=== PATIENT | male | born 1950 | race Hispanic/Latino ===

== ENCOUNTER 2018-05-30 20:37 | Inpatient (IN) | payer OTHER ==
[2018-05-30 17:45] VITALS: BMI 25.7
[2018-05-30] MEDS ORDERED: Dextrose 50% SYRINGE Inj (50 ml) IV PRN (22:41)
[2018-05-30] MEDS ORDERED: Glucagon Recombinant 1 mg Inj IM PRN (22:41)
[2018-05-30] MEDS ORDERED: Heparin25000 units/250ml 1/2NS 25,000 UNITS/250 ML BAG IV PRN (23:56)
--- NOTE | 2018-05-31 00:17 | CP.PCM.CON ---
History of Present Illness - History of Present Illness History of Present Illness: Vascular Surgery Consult Note- Dr. Soria Reason for Consult: CEA Eval, Carotid Stenosis 68 colombian speaking male presents to [facility] as a transfer from [facility] for evaluation of Right Carotid Artery Stenosis. Patient has MRA of neck performed on 05/19/18 showing R.ICA > 95% stenosis. Patient admits to having sudden vision changes that would last for 5 seconds and then resolve. Recently 2 weeks prior patient had sudden loss of vision in the left eye however resolved after 5 seconds. Denies extremity weakness, hx of TIA, sudden changes in movement. Denies: fevers, chills, chest pain, shorntess of breath, nausea, vomiting, diarrhea, neck pain PMH: HTN, pre-diabetes PSH: denies ALL: NKDA SocialHx: social ETOH, denies tobacco, recreational drug use Review of Systems - Review of Systems All systems: reviewed and no additional remarkable complaints except - Constitutional Constitutional: As Per HPI Past Patient History - Infectious Disease Hx of Infectious Diseases: None - Past Medical History & Family History Past Medical History?: Yes - Past Social History Smoking Status: Never Smoked - CARDIAC Hx Cardiac Disorders: Yes Hx Hypertension: Yes - MUSCULOSKELETAL/RHEUMATOLOGICAL Hx Falls: No - PSYCHIATRIC Hx Psychophysiologic Disorder: No Hx Substance Use: No - SURGICAL HISTORY Hx Surgeries: No - ANESTHESIA Hx Anesthesia: No Meds Allergies/Adverse Reactions: Allergies Allergy/AdvReac Type Severity Reaction Status Date / Time No Known Allergies Allergy Verified 05/30/18 17:45 - Medications Medications: Current Medications Aspirin (Aspirin Chewable) 81 mg PO DAILY [facility] Dextrose (Dextrose 50% Inj) 0 ml IV STAT PRN; Protocol PRN Reason: Hypoglycemia Protocol Dextrose (Glutose 15) 0 gm PO ONCE PRN; Protocol PRN Reason: Hypoglycemia Protocol Enoxaparin Sodium (Lovenox) 40 mg SC DAILY [facility] Glucagon (Glucagen Diagnostic Kit) 0 mg IM STAT PRN; Protocol PRN Reason: Hypoglycemia Protocol Dextrose (Dextrose 5% In Water 1000 Ml) 1,000 mls @ 0 mls/hr IV .Q0M PRN; Protocol PRN Reason: Hypoglycemia Protocol Heparin Sodium/Sodium Chloride (Heparin 35003 Units/250ml 1/2 Normal Saline) 25,000 units in 250 mls @ 13.554 mls/hr IV .[id number] PRN; Protocol PRN Reason: ADJUST RATE PER PROTOCOL Insulin Aspart (Novolog) 0 unit SC ACHS [facility]; Protocol Physical Exam - Constitutional Appears: Non-toxic, No Acute Distress - Head Exam Head Exam: ATRAUMATIC - Eye Exam Eye Exam: EOMI. absent: Scleral icterus Pupil Exam: PERRL Additional comments: 3mm reactive - ENT Exam ENT Exam: Mucous Membranes Moist - Neck Exam Additional comments: R. Neck Bruit - Respiratory Exam Respiratory Exam: NORMAL BREATHING PATTERN. absent: Accessory Muscle Use, Respiratory Distress - Cardiovascular Exam Cardiovascular Exam: REGULAR RHYTHM. absent: Bradycardia, Tachycardia - GI/Abdominal Exam GI & Abdominal Exam: Soft. absent: Distended, Firm, Guarding, Rigid, Tenderness - Extremities Exam Additional comments: R. Carotid bruit 5/5 muslce strength upper and lower bilateral - Neurological Exam Neurological exam: Alert, Oriented x3 - Psychiatric Exam Psychiatric exam: Normal Affect - Skin Skin Exam: Intact, Warm Results - Vital Signs Recent Vital Signs: Last Vital Signs Temp Pulse 69 05/30/18 23:17 Resp BP Pulse Ox - Labs Result Diagrams: 05/31/18 01:45 05/31/18 01:45 Assessment & Plan - Assessment and Plan (Free Text) Assessment: 68M w/ R. ICA Stenosis 95% Plan: - Hep ggt - continue medical therapy - Patient is amendable surgery - will need medical clearance prior to surgery - further recs per Dr. Soria Surgical Attending PGY2
[2018-05-31 01:50] LABS: BASO # 0.1 K/uL (0.0-0.2); EOS # 0.1 K/uL (0.0-0.7); EOS % 1.9 % (0.0-4.0); HEMOGLOBIN 13.8 g/dL (12.0-18.0); LYMPH # 2.7 K/uL (1.0-4.3); LYMPH % 42.3 % (20.0-40.0); MEAN CELL VOLUME 91.9 fL (80.0-94.0); MEAN CORPUSCULAR HEMOGLOBIN 31.3 pg (27.0-31.0); MEAN PLATELET VOLUME 7.7 fL (7.2-11.7); MONO # 0.4 K/uL (0.0-0.8); MONO % 6.7 % (0.0-10.0); NEUT # 3.1 K/uL (1.8-7.0); NEUT % 48.1 % (50.0-75.0); RBC 4.41 Mil/uL (4.40-5.90); RED CELL DISTRIBUTION WIDTH 13.7 % (11.5-14.5); WHITE BLOOD COUNT 6.4 K/uL (4.8-10.8)
[2018-05-31 02:03] LABS: ALB/GLOB RATIO 1.4 (1.0-2.1); ALBUMIN 3.7 g/dL (3.5-5.0); ALT/SGPT 20 U/L (21-72); AST/SGOT 19 U/L (17-59); BLOOD UREA NITROGEN 13 mg/dL (9-20); CALCIUM 9.2 mg/dl (8.6-10.4); GFR NON-AFRICAN AMERICAN > 60
[2018-05-31] MEDS: Heparin25000 units/250ml 1/2NS 25,000 UNITS/250 ML BAG IV PRN (04:33)
[2018-05-31] MEDS: (Novolog) Insulin Aspart, Recombinant 100 u/ml 10 ml vial SC SCH ×4 (08:21→22:00)
[2018-05-31] MEDS ORDERED: Iodixanol 320 MG/ML 100 ML BOTTLE IV ONE (08:49)
[2018-05-31] MEDS ORDERED: Enoxaparin 40 mg Syringe SC SCH ×2 (10:00)
--- NOTE | 2018-05-31 12:43 | CT ---
Date of service: 05/31/2018 PROCEDURE: CT Angiography of the neck with contrast HISTORY: 95% MRA COMPARISON: None. TECHNIQUE: Contiguous axial images of the neck were obtained from the level of the skull-base to the superior mediastinum in the arteriographic phase of enhancement. Coronal and sagittal reformats or also generated. IV contrast dose: 100 mL Visipaque 320 Radiation dose: Total exam DLP = 1157.86 mGy-cm. This CT exam was performed using one or more of the following dose reduction techniques: Automated exposure control, adjustment of the mA and/or kV according to patient size, and/or use of iterative reconstruction technique. FINDINGS: There is a 3 vessel aortic arch. There are no calcifications or significant stenosis at the origin of the great vessels. There are mild aortic atherosclerotic calcifications present. There are atherosclerotic calcifications at the origin of the right vertebral artery with mild luminal narrowing. RIGHT CAROTID ARTERIES: Common Carotid Artery: Normal. Carotid Bifurcation: There are calcified atherosclerotic plaques in the and circumferential mural thrombus. Internal Carotid Artery: There are peripheral calcified atherosclerotic plaques and extensive mural thrombus with greater than 90% critical narrowing at the ICA origin. There is asymmetric severe narrowing of the cervical segment of internal carotid artery. External Carotid Artery (proximal branches): Normal. LEFT CAROTID ARTERIES: Common Carotid Artery: Normal. Carotid Bifurcation: Mild atherosclerotic calcifications and mural plaque present. Internal Carotid Artery:Eccentric soft plaques and mild atherosclerotic calcifications without evidence for significant luminal narrowing. External Carotid Artery (proximal branches): Normal. VERTEBRAL ARTERIES: Right Vertebral Artery: Normal. Left Vertebral Artery: Normal. The left vertebral artery is hypoplastic, an anatomic variant. OTHER FINDINGS: There are bilateral enlarged posterior triangle lymph nodes, nonspecific. Clinical follow-up is advised. There is biapical pleural parenchymal scarring and calcifications. IMPRESSION: 1. Critical greater than 90% stenosis at the right ICA origin and asymmetric severe diffuse narrowing of the cervical segment of the internal carotid artery. 2. No evidence of hemodynamically significant stenosis in the left internal carotid artery. 3. Patent bilateral vertebral arteries. The left vertebral artery is hypoplastic, an anatomic variant.
--- NOTE | 2018-05-31 15:18 | CP.PCM.HP ---
Past Patient History - Infectious Disease Hx of Infectious Diseases: None - Past Medical History & Family History Past Medical History?: Yes - Past Social History Smoking Status: Never Smoked - CARDIAC Hx Cardiac Disorders: Yes Hx Hypertension: Yes - MUSCULOSKELETAL/RHEUMATOLOGICAL Hx Falls: No - PSYCHIATRIC Hx Psychophysiologic Disorder: No Hx Substance Use: No - SURGICAL HISTORY Hx Surgeries: No - ANESTHESIA Hx Anesthesia: No Meds Allergies/Adverse Reactions: Allergies Allergy/AdvReac Type Severity Reaction Status Date / Time No Known Allergies Allergy Verified 05/30/18 17:45 Results - Vital Signs Recent Vital Signs: Last Vital Signs Temp 98.0 F 05/31/18 07:15 Pulse 78 05/31/18 07:15 Resp 20 05/31/18 07:15 BP 120/70 05/31/18 07:15 Pulse Ox 98 05/31/18 07:15 - Labs Result Diagrams: 05/31/18 01:45 05/31/18 01:45 Labs: Laboratory Results - last 24 hr 05/31/18 05/31/18 05/31/18 01:45 01:45 01:45 WBC 6.4 RBC 4.41 Hgb 13.8 Hct 40.5 MCV 91.9 MCH 31.3 H MCHC 34.0 RDW 13.7 Plt Count 253 MPV 7.7 Neut % (Auto) 48.1 L Lymph % (Auto) 42.3 H [place] % (Auto) 6.7 Eos % (Auto) 1.9 Baso % (Auto) 1.0 Neut # (Auto) 3.1 Lymph # (Auto) 2.7 [place] # (Auto) 0.4 Eos # (Auto) 0.1 Baso # (Auto) 0.1 PT Cancelled INR Cancelled APTT Cancelled Sodium 137 Potassium 3.7 Chloride 107 Carbon Dioxide 24 Anion Gap 10 BUN 13 Creatinine 0.7 L Est GFR ( Amer) > 60 Est GFR (Non-Af Amer) > 60 POC Glucose (mg/dL) Random Glucose 97 Calcium 9.2 Total Bilirubin 0.5 AST 19 ALT 20 L Alkaline Phosphatase 69 Total Protein 6.4 Albumin 3.7 Globulin 2.7 Albumin/Globulin Ratio 1.4 05/31/18 05/31/18 05/31/18 03:08 11:14 11:33 WBC RBC Hgb Hct MCV MCH MCHC RDW Plt Count MPV Neut % (Auto) Lymph % (Auto) [place] % (Auto) Eos % (Auto) Baso % (Auto) Neut # (Auto) Lymph # (Auto) [place] # (Auto) Eos # (Auto) Baso # (Auto) PT INR APTT > 400.0 H* 98.0 H D Sodium Potassium Chloride Carbon Dioxide Anion Gap BUN Creatinine Est GFR ( Amer) Est GFR (Non-Af Amer) POC Glucose (mg/dL) 118 H Random Glucose Calcium Total Bilirubin AST ALT Alkaline Phosphatase Total Protein Albumin Globulin Albumin/Globulin Ratio
--- NOTE | 2018-05-31 18:12 | CARD ---
APPROVED REPORT Date of service: 05/31/2018 EXAM: Two-dimensional and M-mode echocardiogram with Doppler and color Doppler. Other Information Quality : GoodRhythm : INDICATION Pre-Op RISK FACTORS Hypertension Diabetes 2D DIMENSIONS IVSd1.2 (0.7-1.1cm)LVDd4.6 (3.9-5.9cm) PWd0.8 (0.7-1.1cm)LA Dlovma21 (18-58mL) LVDs2.8 (2.5-4.0cm)FS (%) 40.0 % LVEF (%)70.7 (>50%)LVEF (Villegas's)64.52 % IVC0.00 cm M-Mode DIMENSIONS RVDd1.61 (2.1-3.2cm)Left Atrium (MM)3.54 (2.5-4.0cm) IVSd0.79 (0.7-1.1cm)Aortic Root3.05 (2.2-3.7cm) LVDd5.22 (4.0-5.6cm)Aortic Cusp Exc.1.94 (1.5-2.0cm) PWd0.79 (0.7-1.1cm)FS (%) 41 % LVDs3.08 (2.0-3.8cm)LVEF (%)71 (>50%) Mitral Valve MV E Baqikydf20.6cm/sMV A Srkyaqpm38.1cm/sE/A ratio0.8 EJQT809.04 cm/s TDI Lateral E' Peak V8.93cm/sMedial E' Peak V7.58cm/sE/Lateral E'7.8 E/Medial E'9.2 Tricuspid Valve TR Peak Avfahdsv306yk/sTR Peak Gr.36xmFsFDHG35kdKi LEFT VENTRICLE The left ventricle is normal size. There is normal left ventricular wall thickness. The left ventricular function is normal. The left ventricular ejection fraction is within the normal range. There is normal LV segmental wall motion. Transmitral Doppler flow pattern is Grade I-abnormal relaxation pattern. RIGHT VENTRICLE The right ventricle is normal size. There is normal right ventricular wall thickness. The right ventricular systolic function is normal. ATRIA The left atrium size is normal. The right atrium size is normal. AORTIC VALVE The aortic valve is normal in structure. There is trace to mild aortic regurgitation. There is no aortic valvular stenosis. MITRAL VALVE The mitral valve is normal in structure. There is no evidence of mitral valve prolapse. There is no mitral valve stenosis. Mitral regurgitation is trace to mild. TRICUSPID VALVE The tricuspid valve is normal in structure. There is trace tricuspid regurgitation. PULMONIC VALVE There is mild pulmonic valvular regurgitation. GREAT VESSELS The aortic root is normal in size. PERICARDIAL EFFUSION There is a trace pericardial effusion. <Conclusion> The left ventricle is normal size. There is normal left ventricular wall thickness. The left ventricular function is normal. The left ventricular ejection fraction is within the normal range. There is normal LV segmental wall motion. Transmitral Doppler flow pattern is Grade I-abnormal relaxation pattern. There is trace to mild aortic regurgitation. Mitral regurgitation is trace to mild. There is mild pulmonic valvular regurgitation.
[2018-06-01] MEDS: Heparin25000 units/250ml 1/2NS 25,000 UNITS/250 ML BAG IV PRN (02:25)
--- NOTE | 2018-06-01 05:03 | CP.PCM.PN ---
Subjective - Date & Time of Evaluation Date of Evaluation: 06/01/18 Time of Evaluation: 05:54 - Subjective Subjective: Vascular Surgery Note for Dr. Soria Patient seen and examined at bedside. No acute event overnight. Patient states that he is feeling much better. He is tolerating diet. Denies any weakness, numbness/tingling, vision changes, confusion, dizziness/lightheadedness or vertigo. Objective - Vital Signs/Intake and Output Vital Signs (last 24 hours): Temp Pulse Resp BP Pulse Ox 98.9 F 70 20 117/69 95 05/31/18 23:20 06/01/18 01:00 05/31/18 23:20 06/01/18 04:00 05/31/18 23:20 Intake and Output: 05/31/18 06/01/18 18:59 06:59 Intake Total 98.3 151.7 Balance 98.3 151.7 - Medications Medications: Current Medications Aspirin (Aspirin Chewable) 81 mg PO DAILY [facility] Last Admin: 05/31/18 09:32 Dose: 81 mg Dextrose (Dextrose 50% Inj) 0 ml IV STAT PRN; Protocol PRN Reason: Hypoglycemia Protocol Dextrose (Glutose 15) 0 gm PO ONCE PRN; Protocol PRN Reason: Hypoglycemia Protocol Glucagon (Glucagen Diagnostic Kit) 0 mg IM STAT PRN; Protocol PRN Reason: Hypoglycemia Protocol Dextrose (Dextrose 5% In Water 1000 Ml) 1,000 mls @ 0 mls/hr IV .Q0M PRN; Protocol PRN Reason: Hypoglycemia Protocol Heparin Sodium/Sodium Chloride (Heparin 09856 Units/250ml 1/2 Normal Saline) 25,000 units in 250 mls @ 11.158 mls/hr IV .[id number] PRN; Protocol PRN Reason: ADJUST RATE PER PROTOCOL Last Admin: 06/01/18 02:25 Dose: 13 units/kg/hr, 9.671 mls/hr Insulin Aspart (Novolog) 0 unit SC ACHS [facility]; Protocol Last Admin: 05/31/18 22:00 Dose: Not Given - Labs Labs: 05/31/18 01:45 05/31/18 01:45 PT Cancelled 05/31/18 01:45 INR Cancelled 05/31/18 01:45 APTT 86.0 SECONDS (21-34) H D 06/01/18 02:47 - Constitutional Appears: No Acute Distress - Head Exam Head Exam: ATRAUMATIC, NORMOCEPHALIC - Eye Exam Eye Exam: EOMI, Normal appearance Pupil Exam: PERRL - ENT Exam ENT Exam: Mucous Membranes Moist - Respiratory Exam Respiratory Exam: NORMAL BREATHING PATTERN - Cardiovascular Exam Cardiovascular Exam: REGULAR RHYTHM - GI/Abdominal Exam GI & Abdominal Exam: Soft. absent: Tenderness - Extremities Exam Extremities Exam: Normal Capillary Refill - Neurological Exam Neurological Exam: Alert, Awake, CN II-XII Intact, Oriented x3, Reflexes Normal. absent: Motor Sensory Deficit Neuro motor strength exam: Left Upper Extremity: 5, Right Upper Extremity: 5, Left Lower Extremity: 5, Right Lower Extremity: 5 - Psychiatric Exam Psychiatric exam: Normal Affect, Normal Mood - Skin Skin Exam: Dry, Intact, Warm Assessment and Plan - Assessment and Plan (Free Text) Assessment: 68M with R ICA stenosis > 90% Plan: -Diet as tolerated -ASA -CTA showed > 90% stenosis in Right ICA -Neuro interventional consult, help appreciated -CEA vs carotid stenting based on location -Medical management as per primary -Further recommendations as per Dr. Estella Hodges PGY2
[2018-06-01] MEDS: (Novolog) Insulin Aspart, Recombinant 100 u/ml 10 ml vial SC SCH ×4 (07:39→21:34)
[2018-06-01 11:17] LABS: HEMOGLOBIN 14.7 g/dL (12.0-18.0); MEAN CELL VOLUME 91.4 fL (80.0-94.0); MEAN CORPUSCULAR HEMOGLOBIN 31.1 pg (27.0-31.0); MEAN PLATELET VOLUME 7.9 fL (7.2-11.7); RBC 4.74 Mil/uL (4.40-5.90); RED CELL DISTRIBUTION WIDTH 13.8 % (11.5-14.5); WHITE BLOOD COUNT 5.5 K/uL (4.8-10.8)
--- NOTE | 2018-06-01 13:30 | CP.PCM.PN ---
Subjective - Date & Time of Evaluation Date of Evaluation: 06/01/18 Time of Evaluation: 13:30 Objective - Vital Signs/Intake and Output Vital Signs (last 24 hours): Temp Pulse Resp BP Pulse Ox 97.9 F 88 20 111/71 94 L 06/01/18 07:25 06/01/18 07:30 06/01/18 07:25 06/01/18 07:25 06/01/18 07:25 Intake and Output: 06/01/18 06/01/18 06:59 18:59 Intake Total 228.5 Balance 228.5 - Medications Medications: Current Medications Aspirin (Aspirin Chewable) 81 mg PO DAILY [facility] Last Admin: 06/01/18 09:28 Dose: 81 mg Dextrose (Dextrose 50% Inj) 0 ml IV STAT PRN; Protocol PRN Reason: Hypoglycemia Protocol Dextrose (Glutose 15) 0 gm PO ONCE PRN; Protocol PRN Reason: Hypoglycemia Protocol Glucagon (Glucagen Diagnostic Kit) 0 mg IM STAT PRN; Protocol PRN Reason: Hypoglycemia Protocol Dextrose (Dextrose 5% In Water 1000 Ml) 1,000 mls @ 0 mls/hr IV .Q0M PRN; Protocol PRN Reason: Hypoglycemia Protocol Heparin Sodium/Sodium Chloride (Heparin 06143 Units/250ml 1/2 Normal Saline) 25,000 units in 250 mls @ 11.158 mls/hr IV .[id number] PRN; Protocol PRN Reason: ADJUST RATE PER PROTOCOL Last Admin: 06/01/18 02:25 Dose: 13 units/kg/hr, 9.671 mls/hr Insulin Aspart (Novolog) 0 unit SC ACHS [facility]; Protocol Last Admin: 06/01/18 12:12 Dose: Not Given - Labs Labs: 06/01/18 11:07 05/31/18 01:45 PT Cancelled 05/31/18 01:45 INR Cancelled 05/31/18 01:45 APTT 56.0 SECONDS (21-34) H D 06/01/18 11:07
--- NOTE | 2018-06-01 14:53 | CP.PCM.CON ---
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 Consult was accomplished via translation by patients daughter Debby. PmHx significant fro HTN. Pt was transferred from [facility] for evaluation of right carotid stenosis. MRA 05/19/18 TAMIR >95% stenosis. CTA neck 05/31/18 >90% stenosis right ICA origin, no evidence of hemodynamically significant stenosis in left ICA. Patient had loss of vision in the left eye lasting less than 15 sec, first episode was within the last 6 months and the second was within the last week and resolved within 15 seconds. Patient denies dizziness, headaches, tremors, N/V, fever or chills, weakness, gait disturbance, or visual changes other than described via left eye. Review of Systems - EENT Eyes: Loss of Vision (via left eye for less than 15 seconds on 2 occasions over the last 6 months) Past Patient History - Infectious Disease Hx of Infectious Diseases: None - Past Social History Smoking Status: Never Smoked Chewing Tobacco Use: No Cigar Use: No Alcohol: Social Drugs: Denies Home Situation {Lives}: With Family - CARDIAC Hx Cardiac Disorders: Yes - MUSCULOSKELETAL/RHEUMATOLOGICAL Hx Falls: No - PSYCHIATRIC Hx Psychophysiologic Disorder: No Hx Substance Use: No - SURGICAL HISTORY Hx Surgeries: No - ANESTHESIA Hx Anesthesia: No Meds Allergies/Adverse Reactions: Allergies Allergy/AdvReac Type Severity Reaction Status Date / Time No Known Allergies Allergy Verified 05/30/18 17:45 - Medications Medications: Current Medications Aspirin (Aspirin Chewable) 81 mg PO DAILY [facility] Last Admin: 06/01/18 09:28 Dose: 81 mg Dextrose (Dextrose 50% Inj) 0 ml IV STAT PRN; Protocol PRN Reason: Hypoglycemia Protocol Dextrose (Glutose 15) 0 gm PO ONCE PRN; Protocol PRN Reason: Hypoglycemia Protocol Glucagon (Glucagen Diagnostic Kit) 0 mg IM STAT PRN; Protocol PRN Reason: Hypoglycemia Protocol Dextrose (Dextrose 5% In Water 1000 Ml) 1,000 mls @ 0 mls/hr IV .Q0M PRN; Protocol PRN Reason: Hypoglycemia Protocol Heparin Sodium/Sodium Chloride (Heparin 24697 Units/250ml 1/2 Normal Saline) 25,000 units in 250 mls @ 11.158 mls/hr IV .[id number] PRN; Protocol PRN Reason: ADJUST RATE PER PROTOCOL Last Admin: 06/01/18 02:25 Dose: 13 units/kg/hr, 9.671 mls/hr Insulin Aspart (Novolog) 0 unit SC [facility]; Protocol Last Admin: 06/01/18 12:12 Dose: Not Given Physical Exam - Head Exam Head Exam: ATRAUMATIC, NORMAL INSPECTION - Eye Exam Eye Exam: EOMI, Normal appearance, PERRL - ENT Exam ENT Exam: Mucous Membranes Moist - Neck Exam Neck exam: Positive for: Normal Inspection - Respiratory Exam Respiratory Exam: NORMAL BREATHING PATTERN - Rectal Exam Rectal Exam: Deferred - Extremities Exam Extremities exam: Positive for: full ROM - Neurological Exam Neurological exam: Alert, CN II-XII Intact, Oriented x3 - Skin Skin Exam: Normal Color Results - Vital Signs Recent Vital Signs: Last Vital Signs Temp 97.9 F 06/01/18 07:25 Pulse 88 06/01/18 07:30 Resp 20 06/01/18 07:25 BP 111/71 06/01/18 07:25 Pulse Ox 94 L 06/01/18 07:25 - Labs Result Diagrams: 06/01/18 11:07 05/31/18 01:45 Labs: Laboratory Results - last 24 hr 05/31/18 05/31/18 05/31/18 06:08 16:43 20:07 WBC RBC Hgb Hct MCV MCH MCHC RDW Plt Count MPV APTT 67.0 H D POC Glucose (mg/dL) 118 H 91 05/31/18 06/01/18 06/01/18 21:28 02:47 06:21 WBC RBC Hgb Hct MCV MCH MCHC RDW Plt Count MPV APTT 86.0 H D POC Glucose (mg/dL) 95 119 H 06/01/18 06/01/18 11:07 11:07 WBC 5.5 RBC 4.74 Hgb 14.7 Hct 43.3 MCV 91.4 MCH 31.1 H MCHC 34.0 RDW 13.8 Plt Count 259 MPV 7.9 APTT 56.0 H D POC Glucose (mg/dL) Assessment & Plan - Assessment and Plan (Free Text) Assessment: 68 year old male > 90% stenosis right ICA origin Plan: 1- Patient is scheduled for DALI 06/05/18@ 1400p 2- Please maintain NPO after 12MN Tuesday06/04/18 3- Tuesday night 06/04/18 Plavix 300mg abd Aspirin 325mg PO 4- 0600 AM P2Y12 blood test 5- Please discontinue heparin drip 12 Noon on Tuesday06/05/18 2 hours prior to DALI. 6- If I can be of further assistance please contact [phone] Consult time 45 minutes to assess, and set-up plan for patient - Date & Time Date: 06/01/18 Time: 12:40
[2018-06-02 07:07] LABS: BASO # 0.1 K/uL (0.0-0.2); BASO % 1.2 % (0.0-2.0); EOS # 0.1 K/uL (0.0-0.7); EOS % 1.7 % (0.0-4.0); HEMOGLOBIN 14.6 g/dL (12.0-18.0); LYMPH # 2.5 K/uL (1.0-4.3); LYMPH % 41.5 % (20.0-40.0); MEAN CORPUSCULAR HEMOGLOBIN 30.3 pg (27.0-31.0); MEAN CORPUSCULAR HGB CONC 32.9 g/dL (33.0-37.0); MEAN PLATELET VOLUME 7.6 fL (7.2-11.7); MONO # 0.5 K/uL (0.0-0.8); MONO % 8.7 % (0.0-10.0); NEUT # 2.8 K/uL (1.8-7.0); NEUT % 46.9 % (50.0-75.0); RBC 4.81 Mil/uL (4.40-5.90); RED CELL DISTRIBUTION WIDTH 13.6 % (11.5-14.5)
[2018-06-02 07:15] LABS: INR 1.1; PROTHROMBIN TIME 11.9 SECONDS (9.7-12.2)
[2018-06-02] MEDS ORDERED: Verapamil 0 ML ONE (07:20)
[2018-06-02] MEDS ORDERED: Lidocaine 2% MPF (5 ml) Inj ONE ×2 (07:20→08:06)
[2018-06-02] MEDS ORDERED: Iodixanol 320 MG/ML 100 ML BOTTLE IV ONE (07:21)
[2018-06-02] MEDS ORDERED: Nitroglycerin 50mg in D5W 0 MG/0 ML BOTTLE IV ONE (07:21)
[2018-06-02 07:28] LABS: ALB/GLOB RATIO 1.6 (1.0-2.1); ALBUMIN 4.3 g/dL (3.5-5.0); ALT/SGPT 26 U/L (21-72); AST/SGOT 26 U/L (17-59); BLOOD UREA NITROGEN 14 mg/dL (9-20); CALCIUM 9.5 mg/dl (8.6-10.4); GFR NON-AFRICAN AMERICAN > 60
[2018-06-02] MEDS ORDERED: Midazolam 2 MG/2 ML VIAL ONE (07:30)
--- NOTE | 2018-06-02 07:40 | CP.PCM.CON ---
History of Present Illness - History of Present Illness History of Present Illness: CC: Cardiac risk assessment prior to carotid intervention 68 namibian speaking male presents to [facility] as a transfer from [facility] for evaluation of Right Carotid Artery Stenosis. Patient has MRA of neck performed on 05/19/18 showing R.ICA > 95% stenosis. Patient admits to having sudden vision changes that would last for 5 seconds and then resolve. Recently 2 weeks prior patient had sudden loss of vision in the left eye however resolved after 5 seconds. Denies extremity weakness, hx of TIA, sudden changes in movement. Denies: fevers, chills, chest pain, shorntess of breath, nausea, vomiting, diarrhea, neck pain PMH: HTN, pre-diabetes PSH: denies ALL: NKDA SocialHx: social ETOH, denies tobacco, recreational drug use Review of Systems - Review of Systems All systems: reviewed and no additional remarkable complaints except - Constitutional Constitutional: As Per HPI Physical Exam - Constitutional Appears: Non-toxic, No Acute Distress - Head Exam Head Exam: ATRAUMATIC - Eye Exam Eye Exam: EOMI. absent: Scleral icterus Pupil Exam: PERRL Additional comments: 3mm reactive - ENT Exam ENT Exam: Mucous Membranes Moist - Neck Exam Additional comments: R. Neck Bruit - Respiratory Exam Respiratory Exam: NORMAL BREATHING PATTERN. absent: Accessory Muscle Use, Respiratory Distress - Cardiovascular Exam Cardiovascular Exam: REGULAR RHYTHM. absent: Bradycardia, Tachycardia - GI/Abdominal Exam GI & Abdominal Exam: Soft. absent: Distended, Firm, Guarding, Rigid, Tenderness - Extremities Exam Additional comments: R. Carotid bruit 5/5 muslce strength upper and lower bilateral - Neurological Exam Neurological exam: Alert, Oriented x3 - Psychiatric Exam Psychiatric exam: Normal Affect - Skin Skin Exam: Intact, Warm Assessment & Plan - Assessment and Plan (Free Text) Assessment: 68M w/ R. ICA Stenosis 95% Plan: No prior cardiac work up Not a candidate for stress test Check cardiac cath and ECHO to assess any serious Caronary artery disease D/W Patient and family who agreed for the Cath cath in am Past Patient History - Infectious Disease Hx of Infectious Diseases: None - Past Medical History & Family History Past Medical History?: Yes - Past Social History Smoking Status: Never Smoked Chewing Tobacco Use: No Cigar Use: No Alcohol: Social Drugs: Denies Home Situation {Lives}: With Family - CARDIAC Hx Cardiac Disorders: Yes - MUSCULOSKELETAL/RHEUMATOLOGICAL Hx Falls: No - PSYCHIATRIC Hx Psychophysiologic Disorder: No Hx Substance Use: No - SURGICAL HISTORY Hx Surgeries: No - ANESTHESIA Hx Anesthesia: No Meds Allergies/Adverse Reactions: Allergies Allergy/AdvReac Type Severity Reaction Status Date / Time No Known Allergies Allergy Verified 05/30/18 17:45 - Medications Medications: Current Medications Aspirin (Aspirin Chewable) 81 mg PO DAILY [facility] Last Admin: 06/01/18 09:28 Dose: 81 mg Dextrose (Dextrose 50% Inj) 0 ml IV STAT PRN; Protocol PRN Reason: Hypoglycemia Protocol Dextrose (Glutose 15) 0 gm PO ONCE PRN; Protocol PRN Reason: Hypoglycemia Protocol Glucagon (Glucagen Diagnostic Kit) 0 mg IM STAT PRN; Protocol PRN Reason: Hypoglycemia Protocol Dextrose (Dextrose 5% In Water 1000 Ml) 1,000 mls @ 0 mls/hr IV .Q0M PRN; Protocol PRN Reason: Hypoglycemia Protocol Insulin Aspart (Novolog) 0 unit SC A[facility]S [facility]; Protocol Last Admin: 06/01/18 21:34 Dose: Not Given Results - Vital Signs Recent Vital Signs: Last Vital Signs Temp 98.5 F 06/02/18 06:45 Pulse 76 06/02/18 06:45 Resp 20 06/02/18 06:45 BP 151/73 H 06/02/18 06:45 Pulse Ox 95 06/02/18 06:45 - Labs Result Diagrams: 06/02/18 07:02 06/02/18 07:02 Labs: Laboratory Results - last 24 hr 06/01/18 06/01/18 06/02/18 11:07 11:07 06:18 WBC 5.5 RBC 4.74 Hgb 14.7 Hct 43.3 MCV 91.4 MCH 31.1 H MCHC 34.0 RDW 13.8 Plt Count 259 MPV 7.9 Neut % (Auto) Lymph % (Auto) [place] % (Auto) Eos % (Auto) Baso % (Auto) Neut # (Auto) Lymph # (Auto) [place] # (Auto) Eos # (Auto) Baso # (Auto) PT INR APTT 56.0 H D Sodium Potassium Chloride Carbon Dioxide Anion Gap BUN Creatinine Est GFR ( Amer) Est GFR (Non-Af Amer) POC Glucose (mg/dL) 114 H Random Glucose Calcium Total Bilirubin AST ALT Alkaline Phosphatase Total Protein Albumin Globulin Albumin/Globulin Ratio 06/02/18 06/02/18 06/02/18 07:02 07:02 07:02 WBC 6.0 RBC 4.81 Hgb 14.6 Hct 44.3 MCV 92.0 MCH 30.3 MCHC 32.9 L RDW 13.6 Plt Count 246 MPV 7.6 Neut % (Auto) 46.9 L Lymph % (Auto) 41.5 H [place] % (Auto) 8.7 Eos % (Auto) 1.7 Baso % (Auto) 1.2 Neut # (Auto) 2.8 Lymph # (Auto) 2.5 [place] # (Auto) 0.5 Eos # (Auto) 0.1 Baso # (Auto) 0.1 PT 11.9 INR 1.1 APTT 36.0 H D Sodium 136 Potassium 4.3 Chloride 101 Carbon Dioxide 29 Anion Gap 10 BUN 14 Creatinine 0.8 Est GFR ( Amer) > 60 Est GFR (Non-Af Amer) > 60 POC Glucose (mg/dL) Random Glucose 107 Calcium 9.5 Total Bilirubin 0.6 AST 26 ALT 26 Alkaline Phosphatase 65 Total Protein 6.9 Albumin 4.3 Globulin 2.7 Albumin/Globulin Ratio 1.6
[2018-06-02] MEDS ORDERED: DiphenhydrAMINE 50 mg/ml Inj ONE (08:00)
--- NOTE | 2018-06-02 08:59 | CP.PCM.PN ---
Subjective - Date & Time of Evaluation Date of Evaluation: 06/02/18 Time of Evaluation: 08:56 - Subjective Subjective: Patient s/p crdiac cath 1. L Main: Patent 2. LAD: Proximal 95-99% critical stenosis 3. L Cx: patent 4. RCA: Dominant and patent 5. EF: 60%, EDP 18, No Plan: Critical proximal LAD and Carotid disease ASA, Brilinta, IV Heparin and Statins for now Plan of further mgt after d/w the Neuro Bed rest 2 hrs Resume diet Objective - Vital Signs/Intake and Output Vital Signs (last 24 hours): Temp Pulse Resp BP Pulse Ox 98.2 F 76 20 151/73 H 95 06/02/18 08:45 06/02/18 06:45 06/02/18 06:45 06/02/18 06:45 06/02/18 06:45 - Medications Medications: Current Medications Aspirin (Aspirin Chewable) 81 mg PO DAILY [facility] Last Admin: 06/01/18 09:28 Dose: 81 mg Dextrose (Dextrose 50% Inj) 0 ml IV STAT PRN; Protocol PRN Reason: Hypoglycemia Protocol Dextrose (Glutose 15) 0 gm PO ONCE PRN; Protocol PRN Reason: Hypoglycemia Protocol Glucagon (Glucagen Diagnostic Kit) 0 mg IM STAT PRN; Protocol PRN Reason: Hypoglycemia Protocol Dextrose (Dextrose 5% In Water 1000 Ml) 1,000 mls @ 0 mls/hr IV .Q0M PRN; Protocol PRN Reason: Hypoglycemia Protocol Insulin Aspart (Novolog) 0 unit SC ACHS [facility]; Protocol Last Admin: 06/01/18 21:34 Dose: Not Given - Labs Labs: 06/02/18 07:02 06/02/18 07:02 PT 11.9 SECONDS (9.7-12.2) 06/02/18 07:02 INR 1.1 06/02/18 07:02 APTT 36.0 SECONDS (21-34) H D 06/02/18 07:02
[2018-06-02] MEDS: Sodium Chloride 0.45% 1,000 ML IV SCH ×3 (09:35→23:48)
[2018-06-02] MEDS: Heparin25000 units/250ml 1/2NS 25,000 UNITS/250 ML BAG IV PRN (09:42)
--- NOTE | 2018-06-02 09:56 | CP.PCM.CON ---
<Robles Blankenship - Last Filed: 06/02/18 13:04> History of Present Illness - History of Present Illness History of Present Illness: PGY-1 Critical Care Consult Note for Dr. Broussard Patient is a 68 year old male with PMHx DM, IGT who presents transferred from [facility] where he came in with initial complaint of transient vision loss which lasted less than 15 seconds, found to have > 90% stenosis of the right ICA. Patient was transferred from [facility] for evaluation of R ICA stenosis. Patient was evaluated by cardiology, Dr. Moses, and taken for cardiac cath given vessel disease. On cardiac cath, patient was found to have greater than 95% stenosis of the proximal LAD. Patient is asymptomatic at present, denies chest pain, shortness of breath, dizziness, vision loss. PMH: HTN, pre-diabetes PSH: denies ALL: NKDA SocialHx: social ETOH, denies tobacco, recreational drug use Review of Systems - Constitutional Constitutional: absent: Chills, Fever - EENT Eyes: absent: Blurred Vision, Diplopia, Photophobia Ears: absent: Abnormal Hearing, Dizziness Nose/Mouth/Throat: absent: Nasal Congestion, Nasal Discharge - Cardiovascular Cardiovascular: absent: Chest Pain, Dyspnea, Lightheadedness, Palpitations - Respiratory Respiratory: absent: Cough, Dyspnea - Gastrointestinal Gastrointestinal: absent: Abdominal Pain, Nausea, Vomiting - Genitourinary Genitourinary: absent: Dysuria, Flank Pain - Neurological Neurological: absent: Dizziness, Numbness, Focal Weakness, Weakness - Psychiatric Psychiatric: absent: Anxiety, Depression Past Patient History - Infectious Disease Hx of Infectious Diseases: None - Past Medical History & Family History Past Medical History?: Yes - Past Social History Smoking Status: Never Smoked Chewing Tobacco Use: No Cigar Use: No Alcohol: Social Drugs: Denies Home Situation {Lives}: With Family - CARDIAC Hx Cardiac Disorders: Yes - MUSCULOSKELETAL/RHEUMATOLOGICAL Hx Falls: No - PSYCHIATRIC Hx Psychophysiologic Disorder: No Hx Substance Use: No - SURGICAL HISTORY Hx Surgeries: No - ANESTHESIA Hx Anesthesia: No Meds Allergies/Adverse Reactions: Allergies Allergy/AdvReac Type Severity Reaction Status Date / Time No Known Allergies Allergy Verified 05/30/18 17:45 - Medications Medications: Current Medications Aspirin (Aspirin Chewable) 81 mg PO DAILY [facility] Last Admin: 06/02/18 09:01 Dose: Not Given Dextrose (Dextrose 50% Inj) 0 ml IV STAT PRN; Protocol PRN Reason: Hypoglycemia Protocol Dextrose (Glutose 15) 0 gm PO ONCE PRN; Protocol PRN Reason: Hypoglycemia Protocol Glucagon (Glucagen Diagnostic Kit) 0 mg IM STAT PRN; Protocol PRN Reason: Hypoglycemia Protocol Dextrose (Dextrose 5% In Water 1000 Ml) 1,000 mls @ 0 mls/hr IV .Q0M PRN; Protocol PRN Reason: Hypoglycemia Protocol Heparin Sodium/Sodium Chloride (Heparin 22089 Units/250ml 1/2 Normal Saline) 25,000 units in 250 mls @ 8.976 mls/hr IV .Q24H PRN; Protocol PRN Reason: PROTOCOL Last Admin: 06/02/18 09:42 Dose: 12 units/kg/hr, 8.976 mls/hr Sodium Chloride (Sodium Chloride 0.45%) 1,000 mls @ 70 mls/hr IV .[id number] [facility] Last Admin: 06/02/18 09:35 Dose: 70 mls/hr Insulin Aspart (Novolog) 0 unit SC ACHS [facility]; Protocol Last Admin: 06/01/18 21:34 Dose: Not Given Pantoprazole Sodium (Protonix Inj) 40 mg IVP DAILY [facility] Last Admin: 06/02/18 09:52 Dose: 40 mg Rosuvastatin Calcium (Crestor) 40 mg PO HS [facility] Ticagrelor (Brilinta) 90 mg PO Q12H [facility] Physical Exam - Constitutional Appears: Non-toxic, No Acute Distress - Head Exam Head Exam: ATRAUMATIC, NORMOCEPHALIC - Eye Exam Eye Exam: EOMI - ENT Exam ENT Exam: Mucous Membranes Moist - Respiratory Exam Respiratory Exam: Clear to Auscultation Bilateral, NORMAL BREATHING PATTERN. absent: Rhonchi, Wheezes - Cardiovascular Exam Cardiovascular Exam: REGULAR RHYTHM, +S1, +S2 - GI/Abdominal Exam GI & Abdominal Exam: Normal Bowel Sounds, Soft. absent: Tenderness - Neurological Exam Neurological exam: Alert, CN II-XII Intact, Oriented x3 - Psychiatric Exam Psychiatric exam: Normal Affect, Normal Mood - Skin Skin Exam: Dry, Intact Results - Vital Signs Recent Vital Signs: Last Vital Signs Temp 98.2 F 06/02/18 08:45 Pulse 71 06/02/18 08:42 Resp 14 06/02/18 08:42 BP 141/78 06/02/18 08:42 Pulse Ox 95 06/02/18 06:45 - Labs Result Diagrams: 06/02/18 07:02 06/02/18 07:02 Labs: Laboratory Results - last 24 hr 06/01/18 06/01/18 06/02/18 11:07 11:07 06:18 WBC 5.5 RBC 4.74 Hgb 14.7 Hct 43.3 MCV 91.4 MCH 31.1 H MCHC 34.0 RDW 13.8 Plt Count 259 MPV 7.9 Neut % (Auto) Lymph % (Auto) [place] % (Auto) Eos % (Auto) Baso % (Auto) Neut # (Auto) Lymph # (Auto) [place] # (Auto) Eos # (Auto) Baso # (Auto) PT INR APTT 56.0 H D Sodium Potassium Chloride Carbon Dioxide Anion Gap BUN Creatinine Est GFR ( Amer) Est GFR (Non-Af Amer) POC Glucose (mg/dL) 114 H Random Glucose Calcium Total Bilirubin AST ALT Alkaline Phosphatase Total Protein Albumin Globulin Albumin/Globulin Ratio 06/02/18 06/02/18 06/02/18 07:02 07:02 07:02 WBC 6.0 RBC 4.81 Hgb 14.6 Hct 44.3 MCV 92.0 MCH 30.3 MCHC 32.9 L RDW 13.6 Plt Count 246 MPV 7.6 Neut % (Auto) 46.9 L Lymph % (Auto) 41.5 H [place] % (Auto) 8.7 Eos % (Auto) 1.7 Baso % (Auto) 1.2 Neut # (Auto) 2.8 Lymph # (Auto) 2.5 [place] # (Auto) 0.5 Eos # (Auto) 0.1 Baso # (Auto) 0.1 PT 11.9 INR 1.1 APTT 36.0 H D Sodium 136 Potassium 4.3 Chloride 101 Carbon Dioxide 29 Anion Gap 10 BUN 14 Creatinine 0.8 Est GFR ( Amer) > 60 Est GFR (Non-Af Amer) > 60 POC Glucose (mg/dL) Random Glucose 107 Calcium 9.5 Total Bilirubin 0.6 AST 26 ALT 26 Alkaline Phosphatase 65 Total Protein 6.9 Albumin 4.3 Globulin 2.7 Albumin/Globulin Ratio 1.6 Assessment & Plan - Assessment and Plan (Free Text) Assessment: 68 year old male with PMHx HTN found to have 90% stenosis R ICA, taken for cardiac cath and found to have >95% stenosis proximal LAD. Medical management while awaiting transfer to [facility] for acute intervention. Plan Cardio CAD - Critical >95% stenosis of proximal LAD -Cardiology on consult, Dr. Moses -Medical management with plan to transfer patient to [facility] (designated stroke center) on Tuesday for intervention with interventional cardio/neuro -Medical management --Heparin ggt --ASA 81 daily --Brillinta 90 mg BID --Crestor 40 mg PO HS --Half NS @ 70 cc/hr Neuro -Neuro interventionalist on consult, Dr. Guzman -Vascular surgery on consult, Dr. Soria -Management as above -Q2 Neurochecks Ppx -Heparin ggt -GI: Protonix 40 mg IV daily Assessment and plan d/w Dr. Bobo Blankenship, PGY-1 <Milad Broussard - Last Filed: 06/02/18 15:11> Meds - Medications Medications: Current Medications Aspirin (Aspirin Chewable) 81 mg PO DAILY [facility] Last Admin: 06/02/18 09:01 Dose: Not Given Dextrose (Dextrose 50% Inj) 0 ml IV STAT PRN; Protocol PRN Reason: Hypoglycemia Protocol Dextrose (Glutose 15) 0 gm PO ONCE PRN; Protocol PRN Reason: Hypoglycemia Protocol Glucagon (Glucagen Diagnostic Kit) 0 mg IM STAT PRN; Protocol PRN Reason: Hypoglycemia Protocol Dextrose (Dextrose 5% In Water 1000 Ml) 1,000 mls @ 0 mls/hr IV .Q0M PRN; Tho col PRN Reason: Hypoglycemia Protocol Heparin Sodium/Sodium Chloride (Heparin 79057 Units/250ml 1/2 Normal Saline) 25,000 units in 250 mls @ 8.976 mls/hr IV .Q24H PRN; Protocol PRN Reason: PROTOCOL Last Admin: 06/02/18 09:42 Dose: 12 units/kg/hr, 8.976 mls/hr Sodium Chloride (Sodium Chloride 0.45%) 1,000 mls @ 70 mls/hr IV .[id number] [facility] Last Admin: 06/02/18 09:35 Dose: 70 mls/hr Insulin Aspart (Novolog) 0 unit SC ACHS [facility]; Protocol Last Admin: 06/02/18 11:41 Dose: Not Given Pantoprazole Sodium (Protonix Inj) 40 mg IVP DAILY [facility] Last Admin: 06/02/18 09:52 Dose: 40 mg Rosuvastatin Calcium (Crestor) 40 mg PO HS [facility] Ticagrelor (Brilinta) 90 mg PO Q12H [facility] Results - Vital Signs Recent Vital Signs: Last Vital Signs Temp 98.1 F 06/02/18 12:44 Pulse 72 06/02/18 15:00 Resp 12 06/02/18 15:00 BP 120/67 06/02/18 14:44 Pulse Ox 95 06/02/18 15:00 - Labs Result Diagrams: 06/02/18 07:02 06/02/18 07:02 Labs: Laboratory Results - last 24 hr 06/02/18 06/02/18 06/02/18 06:18 07:02 07:02 WBC 6.0 RBC 4.81 Hgb 14.6 Hct 44.3 MCV 92.0 MCH 30.3 MCHC 32.9 L RDW 13.6 Plt Count 246 MPV 7.6 Neut % (Auto) 46.9 L Lymph % (Auto) 41.5 H [place] % (Auto) 8.7 Eos % (Auto) 1.7 Baso % (Auto) 1.2 Neut # (Auto) 2.8 Lymph # (Auto) 2.5 [place] # (Auto) 0.5 Eos # (Auto) 0.1 Baso # (Auto) 0.1 PT INR APTT Sodium 136 Potassium 4.3 Chloride 101 Carbon Dioxide 29 Anion Gap 10 BUN 14 Creatinine 0.8 Est GFR ( Amer) > 60 Est GFR (Non-Af Amer) > 60 POC Glucose (mg/dL) 114 H Random Glucose 107 Calcium 9.5 Total Bilirubin 0.6 AST 26 ALT 26 Alkaline Phosphatase 65 Total Protein 6.9 Albumin 4.3 Globulin 2.7 Albumin/Globulin Ratio 1.6 06/02/18 07:02 WBC RBC Hgb Hct MCV MCH MCHC RDW Plt Count MPV Neut % (Auto) Lymph % (Auto) [place] % (Auto) Eos % (Auto) Baso % (Auto) Neut # (Auto) Lymph # (Auto) [place] # (Auto) Eos # (Auto) Baso # (Auto) PT 11.9 INR 1.1 APTT 36.0 H D Sodium Potassium Chloride Carbon Dioxide Anion Gap BUN Creatinine Est GFR ( Amer) Est GFR (Non-Af Amer) POC Glucose (mg/dL) Random Glucose Calcium Total Bilirubin AST ALT Alkaline Phosphatase Total Protein Albumin Globulin Albumin/Globulin Ratio Attending/Attestation - Attestation I have personally seen and examined this patient.: Yes I have fully participated in the care of the patient.: Yes I have reviewed all pertinent clinical information: Yes Notes (Text): 06/02/18 15:07 I have seen and examined the patient. Medical records, lab studies, and imaging were reviewed by me and a management plan was formulated on multidisciplinary rounds with resident Dr. Blankenship. I agree with their documented assessment and plan. Patient is clinically stable with two severe life threatening lesions, critical carotid stenosis, and critical LAD stenosis. Continue ASA, Brilinta and heparin gtt. Patient will be transferred to [facility] Tuesday for interventional cardiac cath and then transferred back for Neurosurgical intervention on his carotid stenosis. Critical Care Time 35 minutes. Multi-disciplinary rounds were performed with house staff, nursing, speech therapy, respiratory therapy, pharmacy and nutrition with integrated input from the primary team/attending and other consulting services. The documented time is cumulative and includes review of patient data/exams/labs/chart review and examination of the patient on rounds and throughout the day; time is exclusive of any procedures or teaching time.
[2018-06-02] MEDS: (Novolog) Insulin Aspart, Recombinant 100 u/ml 10 ml vial SC SCH ×3 (11:41→21:37)
--- NOTE | 2018-06-02 13:06 | CP.PCM.PN ---
Subjective - Date & Time of Evaluation Date of Evaluation: 06/02/18 Time of Evaluation: 11:00 - Subjective Subjective: [facility] Dr.Farkas Dr.Arcot Dr.Turkell-Parrella Dr.Liff Doe Consolmagno MSNA,AGNP-BC,BRAIN PICKER is a 68yo male s/p cardiac cath with critical LAD stenosis, and > 90% stenosis of right internal carotid artery. Pt was transferred from [facility] for further evaluation of the carotid stenosis. With the current findings of the critical stenosis of the LAD the cardiac procedure will take place first. Pt denies headache, dizziness, N/V, weakness, gait disturbance, or visual changes at this time. Objective - Vital Signs/Intake and Output Vital Signs (last 24 hours): Temp Pulse Resp BP Pulse Ox 98.1 F 91 H 15 139/75 96 06/02/18 12:00 06/02/18 12:40 06/02/18 12:40 06/02/18 12:44 06/02/18 12:40 Intake and Output: 06/02/18 06/02/18 06:59 18:59 Intake Total 337 Output Total 0 Balance 337 - Medications Medications: Current Medications Aspirin (Aspirin Chewable) 81 mg PO DAILY [facility] Last Admin: 06/02/18 09:01 Dose: Not Given Dextrose (Dextrose 50% Inj) 0 ml IV STAT PRN; Protocol PRN Reason: Hypoglycemia Protocol Dextrose (Glutose 15) 0 gm PO ONCE PRN; Protocol PRN Reason: Hypoglycemia Protocol Glucagon (Glucagen Diagnostic Kit) 0 mg IM STAT PRN; Protocol PRN Reason: Hypoglycemia Protocol Dextrose (Dextrose 5% In Water 1000 Ml) 1,000 mls @ 0 mls/hr IV .Q0M PRN; Protocol PRN Reason: Hypoglycemia Protocol Heparin Sodium/Sodium Chloride (Heparin 81063 Units/250ml 1/2 Normal Saline) 25,000 units in 250 mls @ 8.976 mls/hr IV .Q24H PRN; Protocol PRN Reason: PROTOCOL Last Admin: 06/02/18 09:42 Dose: 12 units/kg/hr, 8.976 mls/hr Sodium Chloride (Sodium Chloride 0.45%) 1,000 mls @ 70 mls/hr IV .[id number] [facility] Last Admin: 06/02/18 09:35 Dose: 70 mls/hr Insulin Aspart (Novolog) 0 unit SC ACHS [facility]; Protocol Last Admin: 06/02/18 11:41 Dose: Not Given Pantoprazole Sodium (Protonix Inj) 40 mg IVP DAILY [facility] Last Admin: 06/02/18 09:52 Dose: 40 mg Rosuvastatin Calcium (Crestor) 40 mg PO HS [facility] Ticagrelor (Brilinta) 90 mg PO Q12H [facility] - Labs Labs: 06/02/18 07:02 06/02/18 07:02 PT 11.9 SECONDS (9.7-12.2) 06/02/18 07:02 INR 1.1 06/02/18 07:02 APTT 36.0 SECONDS (21-34) H D 06/02/18 07:02 - Constitutional Appears: No Acute Distress - Head Exam Head Exam: ATRAUMATIC - Eye Exam Eye Exam: EOMI, Normal appearance, PERRL Pupil Exam: NORMAL ACCOMODATION - Neck Exam Neck Exam: Full ROM - Respiratory Exam Respiratory Exam: NORMAL BREATHING PATTERN - Rectal Exam Rectal Exam: Deferred - Extremities Exam Extremities Exam: Full ROM - Neurological Exam Neurological Exam: Alert, Awake, CN II-XII Intact, Oriented x3 Neuro motor strength exam: Left Upper Extremity: 5, Right Upper Extremity: 5, Left Lower Extremity: 5, Right Lower Extremity: 5 - Psychiatric Exam Psychiatric exam: Normal Affect - Skin Skin Exam: Normal Color, Warm Assessment and Plan - Assessment and Plan (Free Text) Assessment: NEUROLOGICAL EXAM; AAOx3, no slurred speech,follows commands Motor: 5/5 throughout Sensory: intact DTR 2(+) throughout, Babinski(-) CN 2-12 normal Gait deferred 68 year old male with >90% stenosis right ICA origin, s/p cardiac cath critical stenosis noted LAD. Pt is asymptomatic at this time. Plan: 1- Agree that LAD is to be treated first then right internal carotid artery 2- Agree with transfer to [facility] then back to [facility] 3- ICA stent will be scheduled with [facility] s/p LAD stenting 4- If I can be of further assistance please contact me [phone] 45 min spent assessing,speaking with pt and family and plan.
--- NOTE | 2018-06-02 15:33 | CP.PCM.PN ---
Subjective - Date & Time of Evaluation Date of Evaluation: 06/02/18 Time of Evaluation: 15:33 Objective - Vital Signs/Intake and Output Vital Signs (last 24 hours): Temp Pulse Resp BP Pulse Ox 98.1 F 72 12 120/67 95 06/02/18 12:44 06/02/18 15:00 06/02/18 15:00 06/02/18 14:44 06/02/18 15:00 Intake and Output: 06/02/18 06/02/18 06:59 18:59 Intake Total 674 Output Total 700 Balance -26 - Medications Medications: Current Medications Aspirin (Aspirin Chewable) 81 mg PO DAILY [facility] Last Admin: 06/02/18 09:01 Dose: Not Given Dextrose (Dextrose 50% Inj) 0 ml IV STAT PRN; Protocol PRN Reason: Hypoglycemia Protocol Dextrose (Glutose 15) 0 gm PO ONCE PRN; Protocol PRN Reason: Hypoglycemia Protocol Glucagon (Glucagen Diagnostic Kit) 0 mg IM STAT PRN; Protocol PRN Reason: Hypoglycemia Protocol Dextrose (Dextrose 5% In Water 1000 Ml) 1,000 mls @ 0 mls/hr IV .Q0M PRN; Protocol PRN Reason: Hypoglycemia Protocol Heparin Sodium/Sodium Chloride (Heparin 65451 Units/250ml 1/2 Normal Saline) 25,000 units in 250 mls @ 8.976 mls/hr IV .Q24H PRN; Protocol PRN Reason: PROTOCOL Last Admin: 06/02/18 09:42 Dose: 12 units/kg/hr, 8.976 mls/hr Sodium Chloride (Sodium Chloride 0.45%) 1,000 mls @ 70 mls/hr IV .[id number] [facility] Last Admin: 06/02/18 09:35 Dose: 70 mls/hr Insulin Aspart (Novolog) 0 unit SC ACHS [facility]; Protocol Last Admin: 06/02/18 11:41 Dose: Not Given Pantoprazole Sodium (Protonix Inj) 40 mg IVP DAILY [facility] Last Admin: 06/02/18 09:52 Dose: 40 mg Rosuvastatin Calcium (Crestor) 40 mg PO HS [facility] Ticagrelor (Brilinta) 90 mg PO Q12H [facility] - Labs Labs: 06/02/18 07:02 06/02/18 07:02 PT 11.9 SECONDS (9.7-12.2) 06/02/18 07:02 INR 1.1 06/02/18 07:02 APTT 36.0 SECONDS (21-34) H D 06/02/18 07:02
[2018-06-02 16:01] LABS: HDL CHOLESTEROL 44 mg/dL (30-70)
[2018-06-02 16:10] LABS: INR 1.1; PROTHROMBIN TIME 11.8 SECONDS (9.7-12.2)
[2018-06-02 16:15] LABS: LDL CHOLESTEROL 137 mg/dL (0-129)
[2018-06-03 06:35] LABS: BASO % 0.7 % (0.0-2.0); EOS # 0.1 K/uL (0.0-0.7); EOS % 1.5 % (0.0-4.0); HEMOGLOBIN 14.4 g/dL (12.0-18.0); LYMPH # 1.8 K/uL (1.0-4.3); LYMPH % 27.7 % (20.0-40.0); MEAN CELL VOLUME 91.5 fL (80.0-94.0); MEAN CORPUSCULAR HEMOGLOBIN 30.3 pg (27.0-31.0); MEAN CORPUSCULAR HGB CONC 33.1 g/dL (33.0-37.0); MEAN PLATELET VOLUME 7.6 fL (7.2-11.7); MONO # 0.5 K/uL (0.0-0.8); NEUT # 4.1 K/uL (1.8-7.0); NEUT % 62.1 % (50.0-75.0); NRBC % 0.1 % (0.0-2.0); RBC 4.74 Mil/uL (4.40-5.90); RED CELL DISTRIBUTION WIDTH 13.5 % (11.5-14.5); WHITE BLOOD COUNT 6.5 K/uL (4.8-10.8)
[2018-06-03 06:48] LABS: ALB/GLOB RATIO 1.3 (1.0-2.1); ALBUMIN 3.8 g/dL (3.5-5.0); ALT/SGPT 81 U/L (21-72); AST/SGOT 64 U/L (17-59); BLOOD UREA NITROGEN 11 mg/dL (9-20); CALCIUM 9.3 mg/dl (8.6-10.4); GFR NON-AFRICAN AMERICAN > 60
[2018-06-03] MEDS: (Novolog) Insulin Aspart, Recombinant 100 u/ml 10 ml vial SC SCH ×4 (08:00→22:00)
--- NOTE | 2018-06-03 09:24 | CP.PCM.PN ---
Subjective - Date & Time of Evaluation Date of Evaluation: 06/03/18 Time of Evaluation: 09:00 - Subjective Subjective: Patient awake. Denies any pain, denies any dizziness Objective - Vital Signs/Intake and Output Vital Signs (last 24 hours): Temp Pulse Resp BP Pulse Ox 98.7 F 77 13 114/70 93 L 06/03/18 04:00 06/03/18 07:04 06/03/18 07:04 06/03/18 07:05 06/03/18 07:04 Intake and Output: 06/03/18 06/03/18 06:59 18:59 Intake Total 1368 79 Output Total 1200 Balance 168 79 - Medications Medications: Current Medications Aspirin (Aspirin Chewable) 81 mg PO DAILY [facility] Last Admin: 06/02/18 09:01 Dose: Not Given Dextrose (Dextrose 50% Inj) 0 ml IV STAT PRN; Protocol PRN Reason: Hypoglycemia Protocol Dextrose (Glutose 15) 0 gm PO ONCE PRN; Protocol PRN Reason: Hypoglycemia Protocol Glucagon (Glucagen Diagnostic Kit) 0 mg IM STAT PRN; Protocol PRN Reason: Hypoglycemia Protocol Heparin Sodium/Sodium Chloride (Heparin 74549 Units/250ml 1/2 Normal Saline) 25,000 units in 250 mls @ 8.976 mls/hr IV .Q24H PRN; Protocol PRN Reason: PROTOCOL Last Admin: 06/02/18 09:42 Dose: 12 units/kg/hr, 8.976 mls/hr Sodium Chloride (Sodium Chloride 0.45%) 1,000 mls @ 70 mls/hr IV .[id number] [facility] Last Admin: 06/02/18 23:48 Dose: Not Given Insulin Aspart (Novolog) 0 unit SC ACHS [facility]; Protocol Last Admin: 06/02/18 21:37 Dose: Not Given Pantoprazole Sodium (Protonix Inj) 40 mg IVP DAILY [facility] Last Admin: 06/02/18 09:52 Dose: 40 mg Rosuvastatin Calcium (Crestor) 40 mg PO HS [facility] Last Admin: 06/02/18 21:19 Dose: 40 mg Ticagrelor (Brilinta) 90 mg PO Q12H [facility] Last Admin: 06/02/18 20:00 Dose: 90 mg - Labs Labs: 06/03/18 06:27 06/03/18 06:27 PT 11.8 SECONDS (9.7-12.2) 06/02/18 15:34 INR 1.1 06/02/18 15:34 APTT 60.0 SECONDS (21-34) H D 06/02/18 22:42 - Constitutional Appears: Well, Non-toxic - Head Exam Head Exam: ATRAUMATIC - Eye Exam Eye Exam: EOMI Pupil Exam: NORMAL ACCOMODATION, PERRL - ENT Exam ENT Exam: Mucous Membranes Moist - Respiratory Exam Respiratory Exam: Clear to Ausculation Bilateral, NORMAL BREATHING PATTERN - Cardiovascular Exam Cardiovascular Exam: REGULAR RHYTHM, +S1, +S2 - GI/Abdominal Exam GI & Abdominal Exam: Soft, Normal Bowel Sounds. absent: Tenderness - Neurological Exam Neurological Exam: Alert, Awake, CN II-XII Intact, Oriented x3 - Skin Skin Exam: Normal Color, Warm Assessment and Plan - Assessment and Plan (Free Text) Assessment: 68 year old male with PMHx HTN found to have 90% stenosis R ICA, taken for cardiac cath and found to have >95% stenosis proximal LAD. Medical management while awaiting transfer to [facility] for acute intervention. CAD: continue medical therapy -TAMIR stenosis: no neurological deficit, continue to monitor -continue dvt/pud ppx -PAtient remanins hemodynamically stable
[2018-06-03] MEDS: Heparin25000 units/250ml 1/2NS 25,000 UNITS/250 ML BAG IV PRN (11:30)
[2018-06-03] MEDS: Sodium Chloride 0.45% 1,000 ML IV SCH ×2 (12:40→14:18)
--- NOTE | 2018-06-03 16:05 | CP.PCM.PN ---
Subjective - Date & Time of Evaluation Date of Evaluation: 06/03/18 Time of Evaluation: 16:01 - Subjective Subjective: Patient is a 68 year old male with PMHx DM, IGT who [place] [facility] [place] with initial complaint of transient vision loss which lasted less than 15 seconds, found to have > 90% stenosis of the right ICA. Patient was transferred [place] [facility] [place] evaluation of R ICA stenosis. Patient was evaluated by cardiology, Dr. Moses, and taken for cardiac cath given vessel disease. On cardiac cath, patient was found to have greater than 95% stenosis of the proximal LAD. Patient is asymptomatic at present, denies chest pain, shortness of breath, dizziness, vision loss. PMH: HTN, pre-diabetes PSH: denies ALL: NKDA SocialHx: social ETOH, denies tobacco, recreational drug use - Medications Medications: Current Medications Aspirin (Aspirin Chewable) 81 mg PO DAILY [facility] Last Admin: 06/02/18 09:01 Dose: Not Given Dextrose (Dextrose 50% Inj) 0 ml IV STAT PRN; Protocol PRN Reason: Hypoglycemia Protocol Dextrose (Glutose 15) 0 gm PO ONCE PRN; Protocol PRN Reason: Hypoglycemia Protocol Glucagon (Glucagen Diagnostic Kit) 0 mg IM STAT PRN; Protocol PRN Reason: Hypoglycemia Protocol Dextrose (Dextrose 5% In Water 1000 Ml) 1,000 mls @ 0 mls/hr IV .Q0M PRN; Protocol PRN Reason: Hypoglycemia Protocol Heparin Sodium/Sodium Chloride (Heparin 47808 Units/250ml 1/2 Normal Saline) 25,000 units in 250 mls @ 8.976 mls/hr IV .Q24H PRN; Protocol PRN Reason: PROTOCOL Last Admin: 06/02/18 09:42 Dose: 12 units/kg/hr, 8.976 mls/hr Sodium Chloride (Sodium Chloride 0.45%) 1,000 mls @ 70 mls/hr IV .[id number] [facility] Last Admin: 06/02/18 09:35 Dose: 70 mls/hr Insulin Aspart (Novolog) 0 unit SC ACHS [facility]; Protocol Last Admin: 06/01/18 21:34 Dose: Not Given Pantoprazole Sodium (Protonix Inj) 40 mg IVP DAILY [facility] Last Admin: 06/02/18 09:52 Dose: 40 mg Rosuvastatin Calcium (Crestor) 40 mg PO HS [facility] Ticagrelor (Brilinta) 90 mg PO Q12H [facility] Physical Exam - Constitutional Appears: Non-toxic, No Acute Distress - Head Exam Head Exam: ATRAUMATIC, NORMOCEPHALIC - Eye Exam Eye Exam: EOMI - ENT Exam ENT Exam: Mucous Membranes Moist - Respiratory Exam Respiratory Exam: Clear to Auscultation Bilateral, NORMAL BREATHING PATTERN. absent: Rhonchi, Wheezes - Cardiovascular Exam Cardiovascular Exam: REGULAR RHYTHM, +S1, +S2 - GI/Abdominal Exam GI & Abdominal Exam: Normal Bowel Sounds, Soft. absent: Tenderness - Neurological Exam Neurological exam: Alert, CN II-XII Intact, Oriented x3 - Psychiatric Exam Psychiatric exam: Normal Affect, Normal Mood - Skin Skin Exam: Dry, Intact Assessment & Plan - Assessment and Plan (Free Text) Assessment: 68 year old male with PMHx HTN found to have 90% stenosis R ICA, taken for cardiac cath and found to have >95% stenosis proximal LAD. Medical management while awaiting transfer to [facility] for acute intervention. Plan Cardio CAD - Critical >95% stenosis of proximal LAD (Not a candidate for PCI at [place]-High risk case. [place] is a C port and Non Primary Stroke Center-D/W [place]) -Medical management with plan to transfer patient to [facility] (designated Primary stroke center) on Tuesday for intervention with interventional cardio/neuro -Medical management --Heparin ggt --ASA 81 daily --Brillinta 90 mg BID --Crestor 40 mg PO HS --Half NS @ 70 cc/hr Neuro -Neuro interventionalist on consult, Dr. Guzman -Vascular surgery on consult, Dr. Soria -Management as above -Q2 Neurochecks Ppx -Heparin ggt -GI: Protonix 40 mg IV daily After d/w the Stroke Neurology decided to do LAD stenting first in [place] (Primary Stroke center and bring back the patient for Carotid stenting to [facility]) Objective - Vital Signs/Intake and Output Vital Signs (last 24 hours): Temp Pulse Resp BP Pulse Ox 99.1 F 80 17 125/71 96 06/03/18 12:00 06/03/18 15:04 06/03/18 15:04 06/03/18 15:04 06/03/18 15:04 Intake and Output: 06/03/18 06/03/18 06:59 18:59 Intake Total 1368 1360.2 Output Total 1200 700 Balance 168 660.2 - Medications Medications: Current Medications Aspirin (Aspirin Chewable) 81 mg PO DAILY [facility] Last Admin: 06/03/18 09:40 Dose: 81 mg Dextrose (Dextrose 50% Inj) 0 ml IV STAT PRN; Protocol PRN Reason: Hypoglycemia Protocol Dextrose (Glutose 15) 0 gm PO ONCE PRN; Protocol PRN Reason: Hypoglycemia Protocol Glucagon (Glucagen Diagnostic Kit) 0 mg IM STAT PRN; Protocol PRN Reason: Hypoglycemia Protocol Heparin Sodium/Sodium Chloride (Heparin 62209 Units/250ml 1/2 Normal Saline) 25,000 units in 250 mls @ 8.976 mls/hr IV .Q24H PRN; Protocol PRN Reason: PROTOCOL Last Admin: 06/03/18 11:30 Dose: 12 units/kg/hr, 8.976 mls/hr Sodium Chloride (Sodium Chloride 0.45%) 1,000 mls @ 70 mls/hr IV .[id number] [facility] Last Admin: 06/03/18 14:18 Dose: Not Given Insulin Aspart (Novolog) 0 unit SC ACHS [facility]; Protocol Last Admin: 06/03/18 12:00 Dose: Not Given Pantoprazole Sodium (Protonix Inj) 40 mg IVP DAILY [facility] Last Admin: 06/03/18 09:40 Dose: 40 mg Rosuvastatin Calcium (Crestor) 40 mg PO HS [facility] Last Admin: 06/02/18 21:19 Dose: 40 mg Ticagrelor (Brilinta) 90 mg PO Q12H [facility] Last Admin: 06/03/18 09:00 Dose: 90 mg - Labs Labs: 06/03/18 06:27 06/03/18 06:27 PT 11.8 SECONDS (9.7-12.2) 06/02/18 15:34 INR 1.1 06/02/18 15:34 APTT 60.0 SECONDS (21-34) H D 06/02/18 22:42
[2018-06-04] MEDS: Sodium Chloride 0.45% 1,000 ML IV SCH ×2 (05:00→19:39)
[2018-06-04] MEDS: (Novolog) Insulin Aspart, Recombinant 100 u/ml 10 ml vial SC SCH ×4 (07:48→22:00)
[2018-06-04] MEDS: Heparin25000 units/250ml 1/2NS 25,000 UNITS/250 ML BAG IV PRN (17:19)
--- NOTE | 2018-06-04 17:44 | CP.PCM.PN ---
Objective - Vital Signs/Intake and Output Vital Signs (last 24 hours): Temp Pulse Resp BP Pulse Ox 98.6 F 74 13 141/70 96 06/04/18 16:00 06/04/18 17:05 06/04/18 17:05 06/04/18 17:05 06/04/18 17:05 Intake and Output: 06/04/18 06/04/18 06:59 18:59 Intake Total 946.8 1629.0 Output Total 1200 1150 Balance -253.2 479.0 - Medications Medications: Current Medications Aspirin (Aspirin Chewable) 81 mg PO DAILY [facility] Last Admin: 06/04/18 09:18 Dose: 81 mg Dextrose (Dextrose 50% Inj) 0 ml IV STAT PRN; Protocol PRN Reason: Hypoglycemia Protocol Dextrose (Glutose 15) 0 gm PO ONCE PRN; Protocol PRN Reason: Hypoglycemia Protocol Glucagon (Glucagen Diagnostic Kit) 0 mg IM STAT PRN; Protocol PRN Reason: Hypoglycemia Protocol Heparin Sodium/Sodium Chloride (Heparin 57003 Units/250ml 1/2 Normal Saline) 25,000 units in 250 mls @ 8.976 mls/hr IV .Q24H PRN; Protocol PRN Reason: PROTOCOL Last Admin: 06/04/18 17:19 Dose: 12 units/kg/hr, 8.976 mls/hr Sodium Chloride (Sodium Chloride 0.45%) 1,000 mls @ 70 mls/hr IV .[id number] [facility] Last Admin: 06/04/18 05:00 Dose: 70 mls/hr Insulin Aspart (Novolog) 0 unit SC ACHS [facility]; Protocol Last Admin: 06/04/18 16:56 Dose: Not Given Pantoprazole Sodium (Protonix Inj) 40 mg IVP DAILY [facility] Last Admin: 06/04/18 09:19 Dose: 40 mg Rosuvastatin Calcium (Crestor) 40 mg PO HS [facility] Last Admin: 06/03/18 21:03 Dose: 40 mg Ticagrelor (Brilinta) 90 mg PO Q12H [facility] Last Admin: 06/04/18 09:18 Dose: 90 mg - Labs Labs: 06/03/18 06:27 06/03/18 06:27 PT 11.8 SECONDS (9.7-12.2) 06/02/18 15:34 INR 1.1 06/02/18 15:34 APTT 61.0 SECONDS (21-34) H 06/04/18 06:40
--- NOTE | 2018-06-04 21:37 | CP.PCM.PN ---
Subjective - Date & Time of Evaluation Date of Evaluation: 06/04/18 Time of Evaluation: 16:10 - Subjective Subjective: Patient seen and evaluated in ICU On Heparin drip Denies chest pain and dyspnea Physical Exam - Constitutional Appears: Non-toxic, No Acute Distress - Head Exam Head Exam: ATRAUMATIC, NORMOCEPHALIC - Eye Exam Eye Exam: EOMI - ENT Exam ENT Exam: Mucous Membranes Moist - Respiratory Exam Respiratory Exam: Clear to Auscultation Bilateral, NORMAL BREATHING PATTERN. absent: Rhonchi, Wheezes - Cardiovascular Exam Cardiovascular Exam: REGULAR RHYTHM, +S1, +S2 - GI/Abdominal Exam GI & Abdominal Exam: Normal Bowel Sounds, Soft. absent: Tenderness - Neurological Exam Neurological exam: Alert, CN II-XII Intact, Oriented x3 - Psychiatric Exam Psychiatric exam: Normal Affect, Normal Mood - Skin Skin Exam: Dry, Intact Assessment & Plan - Assessment and Plan (Free Text) Assessment: 68 year old male with PMHx HTN found to have 90% stenosis R ICA, taken for cardiac cath and found to have >95% stenosis proximal LAD. Medical management while awaiting transfer to [facility] for acute intervention. Plan Cardio CAD - Critical >95% stenosis of proximal LAD (Not a candidate for PCI at [place]-High risk case. [place] is a C port and Non Primary Stroke Center-D/W [place]) -Medical management with plan to transfer patient to [facility] (designated Primary stroke center) on Tuesday for intervention with interventional cardio /neuro -Medical management --Heparin ggt --ASA 81 daily --Brillinta 90 mg BID --Crestor 40 mg PO HS --Half NS @ 70 cc/hr Neuro -Neuro interventionalist on consult, Dr. Guzman -Vascular surgery on consult, Dr. Soria -Management as above -Q2 Neurochecks Ppx -Heparin ggt -GI: Protonix 40 mg IV daily After d/w the Stroke Neurology decided to do LAD stenting first in [place] (Primary Stroke center and bring back the patient for Carotid stenting to [facility]) Objective - Vital Signs/Intake and Output Vital Signs (last 24 hours): Temp Pulse Resp BP Pulse Ox 98.6 F 73 14 142/75 92 L 06/04/18 16:00 06/04/18 19:04 06/04/18 19:04 06/04/18 19:04 06/04/18 19:04 Intake and Output: 06/04/18 06/05/18 18:59 06:59 Intake Total 2136.8 236.9 Output Total 1775 Balance 361.8 236.9 - Medications Medications: Current Medications Aspirin (Aspirin Chewable) 81 mg PO DAILY [facility] Last Admin: 06/04/18 09:18 Dose: 81 mg Dextrose (Dextrose 50% Inj) 0 ml IV STAT PRN; Protocol PRN Reason: Hypoglycemia Protocol Dextrose (Glutose 15) 0 gm PO ONCE PRN; Protocol PRN Reason: Hypoglycemia Protocol Glucagon (Glucagen Diagnostic Kit) 0 mg IM STAT PRN; Protocol PRN Reason: Hypoglycemia Protocol Heparin Sodium/Sodium Chloride (Heparin 13278 Units/250ml 1/2 Normal Saline) 25,000 units in 250 mls @ 8.976 mls/hr IV .Q24H PRN; Protocol PRN Reason: PROTOCOL Last Admin: 06/04/18 17:19 Dose: 12 units/kg/hr, 8.976 mls/hr Sodium Chloride (Sodium Chloride 0.45%) 1,000 mls @ 70 mls/hr IV .[id number] [facility] Last Admin: 06/04/18 19:39 Dose: 70 mls/hr Insulin Aspart (Novolog) 0 unit SC ACHS [facility]; Protocol Last Admin: 06/04/18 16:56 Dose: Not Given Pantoprazole Sodium (Protonix Inj) 40 mg IVP DAILY [facility] Last Admin: 06/04/18 09:19 Dose: 40 mg Rosuvastatin Calcium (Crestor) 40 mg PO HS [facility] Last Admin: 06/04/18 21:27 Dose: 40 mg Ticagrelor (Brilinta) 90 mg PO Q12H [facility] Last Admin: 06/04/18 20:37 Dose: 90 mg - Labs Labs: 06/03/18 06:27 06/03/18 06:27 PT 11.8 SECONDS (9.7-12.2) 06/02/18 15:34 INR 1.1 06/02/18 15:34 APTT 61.0 SECONDS (21-34) H 06/04/18 06:40
--- NOTE | 2018-06-05 05:55 | CARDCATH ---
PROCEDURE DATE: 06/02/2018 PROCEDURES: 1. Left heart catheterization. 2. Coronary angiogram. CLINICAL INDICATIONS: 1. Chest pain. 2. 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 3. Hypertension. 4. Hyperlipidemia. 5. TIA (transient ischemic attack). REFERRING PHYSICIAN: Massimo Land MD PERFORMING PHYSICIAN: Dell Moses MD DESCRIPTION OF PROCEDURE: After informed consent, the patient was prepped and draped in the usual sterile fashion. Lidocaine 2% was given in the left groin for local anesthesia. Using micropuncture technique, a 6-Italian sheath was introduced into the left common femoral artery. A JL4 6-Italian diagnostic catheter was engaged into the left main coronary artery. Contrast was injected and left coronary angiogram was done. Then, the catheter was exchanged to JR4 6-Italian diagnostic catheter. The catheter was inserted into the left ventricle across the aortic valve. LVEDP measured. Contrast was injected and LV angiogram was done. Then, the catheter was pulled back across the aortic valve. Gradient across the aortic valve was measured. Then, the same catheter was engaged into right coronary artery. Contrast was injected and right coronary angiogram was done. The patient tolerated the procedure well. Postprocedure, Mynx closure device was deployed in the left groin with excellent hemostasis. FINDINGS: 1. Left main coronary artery is patent. 2. Proximal LAD has a critical 95% to 99% stenosis. The lesion is extending to mid LAD. Distal LAD and diagonal branches are patent. 3. Left circumflex and obtuse marginal branches are patent. 4. Right coronary artery is dominant. Right coronary artery is patent. However, PDA has ostial 50% stenosis. 5. LV ejection fraction is approximately 50%. Mild anterior and apical hypokinesis. EDP is 14. No gradient across the aortic valve. IMPRESSION: 1. Critical left anterior descending coronary artery disease as described above. 2. Mild posterior descending artery disease. 3. Mildly decreased left ventricular systolic function. RECOMMENDATIONS: The patient has both critical coronary artery disease and critical internal carotid artery disease. We will discuss with neurointerventional team and plan further management. Dell Moses MD [facility] # [id number]
[2018-06-05 06:05] LABS: HEMOGLOBIN 14.1 g/dL (12.0-18.0); MEAN CORPUSCULAR HEMOGLOBIN 31.2 pg (27.0-31.0); MEAN CORPUSCULAR HGB CONC 34.3 g/dL (33.0-37.0); MEAN PLATELET VOLUME 7.8 fL (7.2-11.7); RBC 4.5 Mil/uL (4.40-5.90); RED CELL DISTRIBUTION WIDTH 13.5 % (11.5-14.5); WHITE BLOOD COUNT 5.9 K/uL (4.8-10.8)
[2018-06-05 06:24] LABS: BLOOD UREA NITROGEN 15 mg/dL (9-20); CALCIUM 9.2 mg/dl (8.6-10.4); GFR NON-AFRICAN AMERICAN > 60
[2018-06-05] MEDS: Sodium Chloride 0.45% 1,000 ML IV SCH (11:30)
[2018-06-05] MEDS: (Novolog) Insulin Aspart, Recombinant 100 u/ml 10 ml vial SC SCH ×4 (11:30→23:49)
--- NOTE | 2018-06-05 17:00 | CP.CCUPN ---
CCU Objective - Vital Signs / Intake & Output Vital Signs (Last 4 hours): Vital Signs Temp Pulse Resp BP Pulse Ox 06/05/18 16:00 98.3 F 73 15 151/75 H 99 06/05/18 15:58 66 10 L 132/77 97 06/05/18 15:42 70 13 127/70 98 06/05/18 14:59 74 14 151/75 H 06/05/18 14:57 78 12 Intake and Output (Last 8hrs): Intake & Output 06/05/18 06/05/18 06/05/18 06:59 14:59 22:59 Intake Total 623 240 Output Total 300 0 Balance 323 240 Intake: Intake, IV Amount 623 0 LW 63 0 Left Wrist 560 0 Oral 240 Output: Urine 300 0 Urine, Voided 300 0 Emesis 0 Oral Regurgitation 0 Other 0 Other: # Bowel Movements 0 - Medications Active Medications: Active Medications Generic Name Dose Route Start Last Admin Trade Name Freq PRN Reason Stop Dose Admin Aspirin 81 mg 05/31/18 10:00 06/05/18 11:30 Aspirin Chewable PO Not Given DAILY [facility] Dextrose 0 ml 05/30/18 22:41 Dextrose 50% Inj IV STAT PRN Hypoglycemia Protocol Protocol Dextrose 0 gm 05/30/18 22:41 Glutose 15 PO ONCE PRN Hypoglycemia Protocol Protocol Enoxaparin Sodium 40 mg 06/06/18 10:00 Lovenox SC DAILY [facility] Glucagon 0 mg 05/30/18 22:41 Glucagen Diagnostic Kit IM STAT PRN Hypoglycemia Protocol Protocol Insulin Aspart 0 unit 05/31/18 07:30 06/05/18 16:26 Novolog SC Not Given ACHS [facility] Protocol Pantoprazole Sodium 40 mg 06/02/18 10:00 06/05/18 11:30 Protonix Inj IVP Not Given DAILY [facility] Rosuvastatin Calcium 40 mg 06/02/18 22:00 06/04/18 21:27 Crestor PO 40 mg HS [facility] Administration Ticagrelor 90 mg 06/02/18 20:00 06/05/18 11:30 Brilinta PO Not Given Q12H [facility] - Patient Studies Lab Studies: Lab Studies 06/05/18 06/05/18 Range/Units 05:58 05:58 WBC 5.9 (4.8-10.8) K/uL RBC 4.50 (4.40-5.90) Mil/uL Hgb 14.1 (12.0-18.0) g/dL Hct 41.0 (35.0-51.0) % MCV 91.0 (80.0-94.0) fL MCH 31.2 H (27.0-31.0) pg MCHC 34.3 (33.0-37.0) g/dL RDW 13.5 (11.5-14.5) % Plt Count 265 (130-400) K/uL MPV 7.8 (7.2-11.7) fL Sodium 140 (132-148) mmol/L Potassium 4.2 (3.6-5.2) mmol/L Chloride 103 (98-107) mmol/L Carbon Dioxide 27 (22-30) mmol/L Anion Gap 14 (10-20) BUN 15 (9-20) mg/dL Creatinine 1.0 (0.8-1.5) mg/dL Est GFR ( Amer) > 60 Est GFR (Non-Af Amer) > 60 Random Glucose 100 (75-110) mg/dL Calcium 9.2 (8.6-10.4) mg/dl Laboratory Results - last 24 hr 06/05/18 06/05/18 05:58 05:58 WBC 5.9 RBC 4.50 Hgb 14.1 Hct 41.0 MCV 91.0 MCH 31.2 H MCHC 34.3 RDW 13.5 Plt Count 265 MPV 7.8 Sodium 140 Potassium 4.2 Chloride 103 Carbon Dioxide 27 Anion Gap 14 BUN 15 Creatinine 1.0 Est GFR ( Amer) > 60 Est GFR (Non-Af Amer) > 60 Random Glucose 100 Calcium 9.2 Fingerstick Blood Sugar Results: 77 Critical Care Progress Note - Nutrition Nutrition: Nutrition Category Date Time Status Heart Healthy Diet [DIET] Diets 06/05/18 Lunch Active NPO Diet [DIET] Diets 06/06/18 Breakfast Active Assessment/Plan - Assessment and Plan (Free Text) Assessment: 68 year old male with PMHx HTN found to have 90% stenosis R ICA, taken for cardiac cath and found to have >95% stenosis proximal LAD. Medical management while awaiting transfer to [facility] for acute intervention. Plan Cardio CAD - Critical >95% stenosis of proximal LAD -Cardiology on consult, Dr. Moses -Patient back from [facility] (designated stroke center) s/p -Medical management --Heparin ggt --ASA 81 daily --Brillinta 90 mg BID --Crestor 40 mg PO HS --Half NS @ 70 cc/hr Neuro -Neuro interventionalist on consult, Dr. Guzman -Vascular surgery on consult, Dr. Soria -Management as above -Q2 Neurochecks Ppx -Heparin ggt -GI: Protonix 40 mg IV daily Assessment and plan d/w Dr. Bobo Blankenship, PGY-1
--- NOTE | 2018-06-05 20:20 | CP.PCM.PN ---
Objective - Vital Signs/Intake and Output Vital Signs (last 24 hours): Temp Pulse Resp BP Pulse Ox 98.6 F 79 16 136/85 95 06/05/18 20:00 06/05/18 20:00 06/05/18 20:00 06/05/18 20:00 06/05/18 20:00 Intake and Output: 06/05/18 06/06/18 18:59 06:59 Intake Total 360 Output Total 750 Balance -390 - Medications Medications: Current Medications Aspirin (Aspirin Chewable) 81 mg PO DAILY [facility] Last Admin: 06/05/18 11:30 Dose: Not Given Dextrose (Dextrose 50% Inj) 0 ml IV STAT PRN; Protocol PRN Reason: Hypoglycemia Protocol Dextrose (Glutose 15) 0 gm PO ONCE PRN; Protocol PRN Reason: Hypoglycemia Protocol Enoxaparin Sodium (Lovenox) 40 mg SC DAILY [facility] Glucagon (Glucagen Diagnostic Kit) 0 mg IM STAT PRN; Protocol PRN Reason: Hypoglycemia Protocol Insulin Aspart (Novolog) 0 unit SC ACHS [facility]; Protocol Last Admin: 06/05/18 16:26 Dose: Not Given Pantoprazole Sodium (Protonix Inj) 40 mg IVP DAILY [facility] Last Admin: 06/05/18 11:30 Dose: Not Given Rosuvastatin Calcium (Crestor) 40 mg PO HS [facility] Last Admin: 06/04/18 21:27 Dose: 40 mg Ticagrelor (Brilinta) 90 mg PO Q12H [facility] Last Admin: 06/05/18 20:07 Dose: 90 mg - Labs Labs: 06/05/18 05:58 06/05/18 05:58 PT 11.8 SECONDS (9.7-12.2) 06/02/18 15:34 INR 1.1 06/02/18 15:34 APTT 61.0 SECONDS (21-34) H 06/04/18 06:40
--- NOTE | 2018-06-05 22:48 | CP.PCM.PN ---
Subjective - Date & Time of Evaluation Date of Evaluation: 06/05/18 Time of Evaluation: 16:30 - Subjective Subjective: Patient s/p LAD stent Uneventful For Carotid stent tomorrow by Neuro Interventionalist Objective - Vital Signs/Intake and Output Vital Signs (last 24 hours): Temp Pulse Resp BP Pulse Ox 98.6 F 79 16 136/85 95 06/05/18 20:00 06/05/18 20:00 06/05/18 20:00 06/05/18 20:00 06/05/18 20:00 Intake and Output: 06/05/18 06/06/18 18:59 06:59 Intake Total 360 Output Total 750 Balance -390 - Medications Medications: Current Medications Aspirin (Aspirin Chewable) 81 mg PO DAILY [facility] Last Admin: 06/05/18 11:30 Dose: Not Given Dextrose (Dextrose 50% Inj) 0 ml IV STAT PRN; Protocol PRN Reason: Hypoglycemia Protocol Dextrose (Glutose 15) 0 gm PO ONCE PRN; Protocol PRN Reason: Hypoglycemia Protocol Enoxaparin Sodium (Lovenox) 40 mg SC DAILY [facility] Glucagon (Glucagen Diagnostic Kit) 0 mg IM STAT PRN; Protocol PRN Reason: Hypoglycemia Protocol Insulin Aspart (Novolog) 0 unit SC [facility]; Protocol Last Admin: 06/05/18 22:11 Dose: 2 units Pantoprazole Sodium (Protonix Inj) 40 mg IVP DAILY [facility] Last Admin: 06/05/18 11:30 Dose: Not Given Rosuvastatin Calcium (Crestor) 40 mg PO HS [facility] Last Admin: 06/05/18 22:12 Dose: 40 mg Ticagrelor (Brilinta) 90 mg PO Q12H [facility] Last Admin: 06/05/18 20:07 Dose: 90 mg - Labs Labs: 06/05/18 05:58 06/05/18 05:58 PT 11.8 SECONDS (9.7-12.2) 06/02/18 15:34 INR 1.1 06/02/18 15:34 APTT 61.0 SECONDS (21-34) H 06/04/18 06:40
[2018-06-06 04:50] LABS: BASO % 0.6 % (0.0-2.0); EOS # 0.1 K/uL (0.0-0.7); EOS % 1.7 % (0.0-4.0); HEMOGLOBIN 13.9 g/dL (12.0-18.0); LYMPH # 1.9 K/uL (1.0-4.3); LYMPH % 26.4 % (20.0-40.0); MEAN CELL VOLUME 91.7 fL (80.0-94.0); MEAN CORPUSCULAR HEMOGLOBIN 30.9 pg (27.0-31.0); MEAN CORPUSCULAR HGB CONC 33.7 g/dL (33.0-37.0); MEAN PLATELET VOLUME 7.6 fL (7.2-11.7); MONO # 0.6 K/uL (0.0-0.8); NEUT # 4.5 K/uL (1.8-7.0); NEUT % 63.3 % (50.0-75.0); RBC 4.49 Mil/uL (4.40-5.90); RED CELL DISTRIBUTION WIDTH 13.5 % (11.5-14.5); WHITE BLOOD COUNT 7.2 K/uL (4.8-10.8)
[2018-06-06 05:08] LABS: PROTHROMBIN TIME 11.2 SECONDS (9.7-12.2)
[2018-06-06 05:36] LABS: ALB/GLOB RATIO 1.6 (1.0-2.1); ALBUMIN 3.8 g/dL (3.5-5.0); ALT/SGPT 194 U/L (21-72); AST/SGOT 87 U/L (17-59); BLOOD UREA NITROGEN 12 mg/dL (9-20); CALCIUM 9.2 mg/dl (8.6-10.4); GFR NON-AFRICAN AMERICAN > 60
[2018-06-06] MEDS: (Novolog) Insulin Aspart, Recombinant 100 u/ml 10 ml vial SC SCH ×4 (07:58→22:20)
[2018-06-06] MEDS ORDERED: Enoxaparin 40 mg Syringe SC SCH (10:00)
--- NOTE | 2018-06-06 13:54 | CP.CCUPN ---
<Robles Blankenship - Last Filed: 06/06/18 14:03> CCU Subjective - Physician Review Subjective (Free Text): 06/06/18 14:11 PGY-1 ICU Progress Note for Dr. Posadas Patient seen and examined at bedside. No acute events overnight. To go for repair R ICA stenosis today with Dr. Guzman. CCU Objective - Vital Signs / Intake & Output Vital Signs (Last 4 hours): Vital Signs Temp Pulse Resp BP Pulse Ox 06/06/18 13:00 68 19 124/58 L 98 06/06/18 12:00 98.7 F 72 20 118/72 98 06/06/18 11:00 73 19 128/77 96 06/06/18 10:00 80 18 133/77 95 Intake and Output (Last 8hrs): Intake & Output 06/05/18 06/06/18 06/06/18 22:59 06:59 14:59 Intake Total 360 500 Output Total 750 800 Balance -390 -300 Intake: Intake, IV Amount 0 0 LW 0 Left Wrist 0 Right Antecubital 0 0 Oral 360 500 Output: Urine 750 800 Urine, Voided 750 800 Emesis 0 Oral Regurgitation 0 Other 0 Other: # Voids Urine, Voided 2 # Bowel Movements 0 - Physical Exam Head: Positive for: Normocephalic Pupils: Positive for: PERRL Extroacular Muscles: Positive for: EOMI Mouth: Positive for: Moist Mucous Membranes Cardiovascular: Positive for: Regular Rate and Rhythm, Normal S1, S2 Neurological: Positive for: GCS=15, CN II-XII Intact Skin: Positive for: Warm, Dry Psychiatric: Positive for: Alert, Oriented x 3 - Medications Active Medications: Active Medications Generic Name Dose Route Start Last Admin Trade Name Freq PRN Reason Stop Dose Admin Aspirin 81 mg 05/31/18 10:00 06/06/18 09:19 Aspirin Chewable PO 81 mg DAILY RAJWINDER Administration Dextrose 0 ml 05/30/18 22:41 Dextrose 50% Inj IV STAT PRN Hypoglycemia Protocol Protocol Dextrose 0 gm 05/30/18 22:41 Glutose 15 PO ONCE PRN Hypoglycemia Protocol Protocol Glucagon 0 mg 05/30/18 22:41 Glucagen Diagnostic Kit IM STAT PRN Hypoglycemia Protocol Protocol Insulin Aspart 0 unit 05/31/18 07:30 06/06/18 07:58 Novolog SC Not Given ACHS RAJWINDER Protocol Pantoprazole Sodium 40 mg 06/02/18 10:00 06/06/18 09:19 Protonix Inj IVP 40 mg DAILY RAJWINDER Administration Rosuvastatin Calcium 40 mg 06/02/18 22:00 06/05/18 22:12 Crestor PO 40 mg HS RAJWINDER Administration Ticagrelor 90 mg 06/02/18 20:00 06/06/18 09:00 Brilinta PO 90 mg Q12H RAJWINDER Administration - Patient Studies Lab Studies: Lab Studies 06/06/18 06/06/18 06/06/18 Range/Units 04:42 04:42 04:42 WBC 7.2 (4.8-10.8) K/uL RBC 4.49 (4.40-5.90) Mil/uL Hgb 13.9 (12.0-18.0) g/dL Hct 41.2 (35.0-51.0) % MCV 91.7 (80.0-94.0) fL MCH 30.9 (27.0-31.0) pg MCHC 33.7 (33.0-37.0) g/dL RDW 13.5 (11.5-14.5) % Plt Count 244 (130-400) K/uL MPV 7.6 (7.2-11.7) fL Neut % (Auto) 63.3 (50.0-75.0) % Lymph % (Auto) 26.4 (20.0-40.0) % [place] % (Auto) 8.0 (0.0-10.0) % Eos % (Auto) 1.7 (0.0-4.0) % Baso % (Auto) 0.6 (0.0-2.0) % Neut # (Auto) 4.5 (1.8-7.0) K/uL Lymph # (Auto) 1.9 (1.0-4.3) K/uL [place] # (Auto) 0.6 (0.0-0.8) K/uL Eos # (Auto) 0.1 (0.0-0.7) K/uL Baso # (Auto) 0.0 (0.0-0.2) K/uL PT 11.2 (9.7-12.2) SECONDS INR 1.0 APTT 34.0 D (21-34) SECONDS Sodium 140 (132-148) mmol/L Potassium 4.0 (3.6-5.2) mmol/L Chloride 105 (98-107) mmol/L Carbon Dioxide 25 (22-30) mmol/L Anion Gap 14 (10-20) BUN 12 (9-20) mg/dL Creatinine 0.8 (0.8-1.5) mg/dL Est GFR ( Amer) > 60 Est GFR (Non-Af Amer) > 60 Random Glucose 99 (75-110) mg/dL Calcium 9.2 (8.6-10.4) mg/dl Phosphorus 4.2 (2.5-4.5) mg/dL Magnesium 1.9 (1.6-2.3) mg/dL Total Bilirubin 0.6 (0.2-1.3) mg/dL AST 87 H D (17-59) U/L ALT 194 H D (21-72) U/L Alkaline Phosphatase 74 (38-126) U/L Total Protein 6.2 L (6.3-8.3) g/dL Albumin 3.8 (3.5-5.0) g/dL Globulin 2.4 (2.2-3.9) gm/dL Albumin/Globulin Ratio 1.6 (1.0-2.1) Blood Type Antibody Screen 06/06/18 Range/Units 04:00 WBC (4.8-10.8) K/uL RBC (4.40-5.90) Mil/uL Hgb (12.0-18.0) g/dL Hct (35.0-51.0) % MCV (80.0-94.0) fL MCH (27.0-31.0) pg MCHC (33.0-37.0) g/dL RDW (11.5-14.5) % Plt Count (130-400) K/uL MPV (7.2-11.7) fL Neut % (Auto) (50.0-75.0) % Lymph % (Auto) (20.0-40.0) % [place] % (Auto) (0.0-10.0) % Eos % (Auto) (0.0-4.0) % Baso % (Auto) (0.0-2.0) % Neut # (Auto) (1.8-7.0) K/uL Lymph # (Auto) (1.0-4.3) K/uL [place] # (Auto) (0.0-0.8) K/uL Eos # (Auto) (0.0-0.7) K/uL Baso # (Auto) (0.0-0.2) K/uL PT (9.7-12.2) SECONDS INR APTT (21-34) SECONDS Sodium (132-148) mmol/L Potassium (3.6-5.2) mmol/L Chloride (98-107) mmol/L Carbon Dioxide (22-30) mmol/L Anion Gap (10-20) BUN (9-20) mg/dL Creatinine (0.8-1.5) mg/dL Est GFR ( Amer) Est GFR (Non-Af Amer) Random Glucose (75-110) mg/dL Calcium (8.6-10.4) mg/dl Phosphorus (2.5-4.5) mg/dL Magnesium (1.6-2.3) mg/dL Total Bilirubin (0.2-1.3) mg/dL AST (17-59) U/L ALT (21-72) U/L Alkaline Phosphatase (38-126) U/L Total Protein (6.3-8.3) g/dL Albumin (3.5-5.0) g/dL Globulin (2.2-3.9) gm/dL Albumin/Globulin Ratio (1.0-2.1) Blood Type B POSITIVE Antibody Screen Negative Laboratory Results - last 24 hr 06/06/18 06/06/18 06/06/18 04:00 04:42 04:42 WBC 7.2 RBC 4.49 Hgb 13.9 Hct 41.2 MCV 91.7 MCH 30.9 MCHC 33.7 RDW 13.5 Plt Count 244 MPV 7.6 Neut % (Auto) 63.3 Lymph % (Auto) 26.4 [place] % (Auto) 8.0 Eos % (Auto) 1.7 Baso % (Auto) 0.6 Neut # (Auto) 4.5 Lymph # (Auto) 1.9 [place] # (Auto) 0.6 Eos # (Auto) 0.1 Baso # (Auto) 0.0 PT 11.2 INR 1.0 APTT 34.0 D Sodium Potassium Chloride Carbon Dioxide Anion Gap BUN Creatinine Est GFR ( Amer) Est GFR (Non-Af Amer) Random Glucose Calcium Phosphorus Magnesium Total Bilirubin AST ALT Alkaline Phosphatase Total Protein Albumin Globulin Albumin/Globulin Ratio Blood Type B POSITIVE Antibody Screen Negative 06/06/18 04:42 WBC RBC Hgb Hct MCV MCH MCHC RDW Plt Count MPV Neut % (Auto) Lymph % (Auto) [place] % (Auto) Eos % (Auto) Baso % (Auto) Neut # (Auto) Lymph # (Auto) [place] # (Auto) Eos # (Auto) Baso # (Auto) PT INR APTT Sodium 140 Potassium 4.0 Chloride 105 Carbon Dioxide 25 Anion Gap 14 BUN 12 Creatinine 0.8 Est GFR ( Amer) > 60 Est GFR (Non-Af Amer) > 60 Random Glucose 99 Calcium 9.2 Phosphorus 4.2 Magnesium 1.9 Total Bilirubin 0.6 AST 87 H D ALT 194 H D Alkaline Phosphatase 74 Total Protein 6.2 L Albumin 3.8 Globulin 2.4 Albumin/Globulin Ratio 1.6 Blood Type Antibody Screen Fingerstick Blood Sugar Results: 102 Review of Systems - Review of Systems All systems: reviewed and no additional remarkable complaints except Critical Care Progress Note - Nutrition Nutrition: Nutrition Category Date Time Status NPO Diet [DIET] Diets 06/06/18 Lunch Active Assessment/Plan - Assessment and Plan (Free Text) Assessment: 68 year old male with PMHx HTN found to have 90% stenosis R ICA, taken for cardiac cath and found to have >95% stenosis proximal LAD. S/p PCI at [facility]. Patient to go for Carotid Stenting with interventional Neuro. ICU monitoring. Plan Cardio CAD - Critical >95% stenosis of proximal LAD -Cardiology on consult, Dr. Moses -S/p PCI repair of LAD with Dr. 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 Guzman -Vascular surgery on consult, Dr. Soria -Management as above -Plan to go for interventional repair today 06/[address] Guzman Ppx -Heparin ggt -GI: Protonix 40 mg IV daily Assessment and plan d/w Dr. Cuauhtemoc Blankenship, PGY-1 <Eric Posadas S - Last Filed: 06/06/18 15:36> CCU Subjective - Physician Review Critical Care Time Spent (in minutes): 35 CCU Objective - Vital Signs / Intake & Output Vital Signs (Last 4 hours): Vital Signs Temp Pulse Resp BP Pulse Ox 06/06/18 14:00 80 20 114/54 L 96 06/06/18 13:00 68 19 124/58 L 98 06/06/18 12:00 98.7 F 72 20 118/72 98 Intake and Output (Last 8hrs): Intake & Output 06/06/18 06/06/18 06/06/18 06:59 14:59 22:59 Intake Total 500 Output Total 800 Balance -300 Intake: Intake, IV Amount 0 Right Antecubital 0 Oral 500 Output: Urine 800 Urine, Voided 800 Other: # Voids Urine, Voided 2 - Medications Active Medications: Active Medications Generic Name Dose Route Start Last Admin Trade Name Freq PRN Reason Stop Dose Admin Aspirin 81 mg 05/31/18 10:00 06/06/18 09:19 Aspirin Chewable PO 81 mg DAILY RAJWINDER Administration Dextrose 0 ml 05/30/18 22:41 Dextrose 50% Inj IV STAT PRN Hypoglycemia Protocol Protocol Dextrose 0 gm 05/30/18 22:41 Glutose 15 PO ONCE PRN Hypoglycemia Protocol Protocol Glucagon 0 mg 05/30/18 22:41 Glucagen Diagnostic Kit IM STAT PRN Hypoglycemia Protocol Protocol Insulin Aspart 0 unit 05/31/18 07:30 06/06/18 12:00 Novolog SC Not Given ACHS RAJWINDER Protocol Pantoprazole Sodium 40 mg 06/02/18 10:00 06/06/18 09:19 Protonix Inj IVP 40 mg DAILY RAJWINDER Administration Rosuvastatin Calcium 40 mg 06/02/18 22:00 06/05/18 22:12 Crestor PO 40 mg HS RAJWINDER Administration Ticagrelor 90 mg 06/02/18 20:00 06/06/18 09:00 Brilinta PO 90 mg Q12H RAJWINDER Administration - Patient Studies Lab Studies: Lab Studies 06/06/18 06/06/18 06/06/18 Range/Units 04:42 04:42 04:42 WBC 7.2 (4.8-10.8) K/uL RBC 4.49 (4.40-5.90) Mil/uL Hgb 13.9 (12.0-18.0) g/dL Hct 41.2 (35.0-51.0) % MCV 91.7 (80.0-94.0) fL MCH 30.9 (27.0-31.0) pg MCHC 33.7 (33.0-37.0) g/dL RDW 13.5 (11.5-14.5) % Plt Count 244 (130-400) K/uL MPV 7.6 (7.2-11.7) fL Neut % (Auto) 63.3 (50.0-75.0) % Lymph % (Auto) 26.4 (20.0-40.0) % [place] % (Auto) 8.0 (0.0-10.0) % Eos % (Auto) 1.7 (0.0-4.0) % Baso % (Auto) 0.6 (0.0-2.0) % Neut # (Auto) 4.5 (1.8-7.0) K/uL Lymph # (Auto) 1.9 (1.0-4.3) K/uL [place] # (Auto) 0.6 (0.0-0.8) K/uL Eos # (Auto) 0.1 (0.0-0.7) K/uL Baso # (Auto) 0.0 (0.0-0.2) K/uL PT 11.2 (9.7-12.2) SECONDS INR 1.0 APTT 34.0 D (21-34) SECONDS Sodium 140 (132-148) mmol/L Potassium 4.0 (3.6-5.2) mmol/L Chloride 105 (98-107) mmol/L Carbon Dioxide 25 (22-30) mmol/L Anion Gap 14 (10-20) BUN 12 (9-20) mg/dL Creatinine 0.8 (0.8-1.5) mg/dL Est GFR ( Amer) > 60 Est GFR (Non-Af Amer) > 60 Random Glucose 99 (75-110) mg/dL Calcium 9.2 (8.6-10.4) mg/dl Phosphorus 4.2 (2.5-4.5) mg/dL Magnesium 1.9 (1.6-2.3) mg/dL Total Bilirubin 0.6 (0.2-1.3) mg/dL AST 87 H D (17-59) U/L ALT 194 H D (21-72) U/L Alkaline Phosphatase 74 (38-126) U/L Total Protein 6.2 L (6.3-8.3) g/dL Albumin 3.8 (3.5-5.0) g/dL Globulin 2.4 (2.2-3.9) gm/dL Albumin/Globulin Ratio 1.6 (1.0-2.1) Blood Type Antibody Screen 06/06/18 Range/Units 04:00 WBC (4.8-10.8) K/uL RBC (4.40-5.90) Mil/uL Hgb (12.0-18.0) g/dL Hct (35.0-51.0) % MCV (80.0-94.0) fL MCH (27.0-31.0) pg MCHC (33.0-37.0) g/dL RDW (11.5-14.5) % Plt Count (130-400) K/uL MPV (7.2-11.7) fL Neut % (Auto) (50.0-75.0) % Lymph % (Auto) (20.0-40.0) % [place] % (Auto) (0.0-10.0) % Eos % (Auto) (0.0-4.0) % Baso % (Auto) (0.0-2.0) % Neut # (Auto) (1.8-7.0) K/uL Lymph # (Auto) (1.0-4.3) K/uL [place] # (Auto) (0.0-0.8) K/uL Eos # (Auto) (0.0-0.7) K/uL Baso # (Auto) (0.0-0.2) K/uL PT (9.7-12.2) SECONDS INR APTT (21-34) SECONDS Sodium (132-148) mmol/L Potassium (3.6-5.2) mmol/L Chloride (98-107) mmol/L Carbon Dioxide (22-30) mmol/L Anion Gap (10-20) BUN (9-20) mg/dL Creatinine (0.8-1.5) mg/dL Est GFR ( Amer) Est GFR (Non-Af Amer) Random Glucose (75-110) mg/dL Calcium (8.6-10.4) mg/dl Phosphorus (2.5-4.5) mg/dL Magnesium (1.6-2.3) mg/dL Total Bilirubin (0.2-1.3) mg/dL AST (17-59) U/L ALT (21-72) U/L Alkaline Phosphatase (38-126) U/L Total Protein (6.3-8.3) g/dL Albumin (3.5-5.0) g/dL Globulin (2.2-3.9) gm/dL Albumin/Globulin Ratio (1.0-2.1) Blood Type B POSITIVE Antibody Screen Negative Laboratory Results - last 24 hr 06/06/18 06/06/18 06/06/18 04:00 04:42 04:42 WBC 7.2 RBC 4.49 Hgb 13.9 Hct 41.2 MCV 91.7 MCH 30.9 MCHC 33.7 RDW 13.5 Plt Count 244 MPV 7.6 Neut % (Auto) 63.3 Lymph % (Auto) 26.4 [place] % (Auto) 8.0 Eos % (Auto) 1.7 Baso % (Auto) 0.6 Neut # (Auto) 4.5 Lymph # (Auto) 1.9 [place] # (Auto) 0.6 Eos # (Auto) 0.1 Baso # (Auto) 0.0 PT 11.2 INR 1.0 APTT 34.0 D Sodium Potassium Chloride Carbon Dioxide Anion Gap BUN Creatinine Est GFR ( Amer) Est GFR (Non-Af Amer) Random Glucose Calcium Phosphorus Magnesium Total Bilirubin AST ALT Alkaline Phosphatase Total Protein Albumin Globulin Albumin/Globulin Ratio Blood Type B POSITIVE Antibody Screen Negative 06/06/18 04:42 WBC RBC Hgb Hct MCV MCH MCHC RDW Plt Count MPV Neut % (Auto) Lymph % (Auto) [place] % (Auto) Eos % (Auto) Baso % (Auto) Neut # (Auto) Lymph # (Auto) [place] # (Auto) Eos # (Auto) Baso # (Auto) PT INR APTT Sodium 140 Potassium 4.0 Chloride 105 Carbon Dioxide 25 Anion Gap 14 BUN 12 Creatinine 0.8 Est GFR ( Amer) > 60 Est GFR (Non-Af Amer) > 60 Random Glucose 99 Calcium 9.2 Phosphorus 4.2 Magnesium 1.9 Total Bilirubin 0.6 AST 87 H D ALT 194 H D Alkaline Phosphatase 74 Total Protein 6.2 L Albumin 3.8 Globulin 2.4 Albumin/Globulin Ratio 1.6 Blood Type Antibody Screen Critical Care Progress Note - Nutrition Nutrition: Nutrition Category Date Time Status NPO Diet [DIET] Diets 06/06/18 Lunch Active Attending/Attestation - Attestation I have personally seen and examined this patient.: Yes I have fully participated in the care of the patient.: Yes I have reviewed all pertinent clinical information: Yes Notes (Text): 06/06/18 15:34 Patient seen and examined in the intensive care unit. Case discussed with housestaff in the morning rounds. Critical >95% stenosis of proximal LAD S/p PCI repair of LAD with Dr. 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 Guzman -
--- NOTE | 2018-06-06 15:33 | PCM.IRPREO ---
Pre Procedure Note - History Proposed Procedure: Cerebral Angiogram, head and neck angiogram, stenting of the right internal carotid artery with embolic protection Pre-Op Diagnosis: Symptomatic high-grade right internal carotid artery stenosis - Previous Medical/Surgical History Cardiac: ASHD/CAD, Other (s/p PCI LAD 06/04/18 @ [facility]) Neuro: Other (loss of vision left eye on two occasions less than 15 seconds; NIHSS Scale=0; PERRL, EOMI; Normal performance rapid alternating movements, precision finger tap, [id number], heel-calvillo; Normal performance) Pain: 0. No Pain - Pre Procedure Were any radiologic studies performed in the last 12 months: Yes List of radiologic studies performed: MRA neck; CTA head and neck Was medical management performed in the past 24 months: Yes (s/p PCI LAD) List of medical management performed: s/p PCI LAD 06/04/18 Clinical indication for the procedure: 98% stenosis left LAD Have risks and benefits been explained to the patient: Yes Risks and benefits been explained to the patient: Planned procedure, benefits, and risks including but not limited to groin infection, arterial occlusion, injury, renal impairment, CVA/Brain hemorrhage resulting in irreversible neurological deficits and even were explained to the via malay settlement clerk in detail. He agrees to proceed and informed consent was obtained. Have alternatives to surgery explained to the patient as applicable: Yes - Allergies Allergies: Allergies No Known Allergies Allergy (Verified 05/30/18 17:45) - Physical Exam Vital Signs: Vital Signs 06/06/18 06/06/18 06/06/18 08:00 09:00 10:00 Temperature 98.3 F Pulse Rate 88 89 80 Respiratory 18 19 18 Rate Blood Pressure 121/65 114/68 133/77 O2 Sat by Pulse 94 L 98 95 Oximetry 06/06/18 06/06/18 06/06/18 11:00 12:00 13:00 Temperature 98.7 F Pulse Rate 73 72 68 Respiratory 19 20 19 Rate Blood Pressure 128/77 118/72 124/58 L O2 Sat by Pulse 96 98 98 Oximetry 06/06/18 14:00 Temperature Pulse Rate 80 Respiratory 20 Rate Blood Pressure 114/54 L O2 Sat by Pulse 96 Oximetry Mental Status: Alert & Oriented x3 Neuro: WNL, Other (see above) Heart: WNL Lungs: WNL - Impression Impression: 68 year old male with significant risk factors for planned TAMIR stent. Patient denies headache, dizziness, weakness/numbness to right and left upper and lower extremity Pt. Evaluated Today:Candidate for Anesthesia & Procedure: yes - Date & Time Date: 06/06/18 Time: 14:55
[2018-06-06] MEDS ORDERED: Phenylephrine 10 mg/ml Inj ONE (16:13)
--- NOTE | 2018-06-06 16:26 | CP.PCM.PN ---
Subjective - Date & Time of Evaluation Date of Evaluation: 06/06/18 Time of Evaluation: 16:26 Objective - Vital Signs/Intake and Output Vital Signs (last 24 hours): Temp Pulse Resp BP Pulse Ox 98.2 F 74 18 138/80 95 06/06/18 16:00 06/06/18 16:00 06/06/18 16:00 06/06/18 16:00 06/06/18 16:00 Intake and Output: 06/06/18 06/06/18 06:59 18:59 Intake Total 500 Output Total 800 Balance -300 - Medications Medications: Current Medications Aspirin (Aspirin Chewable) 81 mg PO DAILY [facility] Last Admin: 06/06/18 09:19 Dose: 81 mg Dextrose (Dextrose 50% Inj) 0 ml IV STAT PRN; Protocol PRN Reason: Hypoglycemia Protocol Dextrose (Glutose 15) 0 gm PO ONCE PRN; Protocol PRN Reason: Hypoglycemia Protocol Glucagon (Glucagen Diagnostic Kit) 0 mg IM STAT PRN; Protocol PRN Reason: Hypoglycemia Protocol Nicardipine HCl 25 mg/ Sodium (Chloride) 250 mls @ 50 mls/hr IV .Q5H RAJWINDER; Protocol Insulin Aspart (Novolog) 0 unit SC ACHS RAJWINDER; Protocol Last Admin: 06/06/18 12:00 Dose: Not Given Pantoprazole Sodium (Protonix Inj) 40 mg IVP DAILY RAJWINDER Last Admin: 06/06/18 09:19 Dose: 40 mg Rosuvastatin Calcium (Crestor) 40 mg PO HS RAJWINDER Last Admin: 06/05/18 22:12 Dose: 40 mg Ticagrelor (Brilinta) 90 mg PO Q12H RAJWINDER Last Admin: 06/06/18 09:00 Dose: 90 mg - Labs Labs: 06/06/18 04:42 06/06/18 04:42 PT 11.2 SECONDS (9.7-12.2) 06/06/18 04:42 INR 1.0 06/06/18 04:42 APTT 34.0 SECONDS (21-34) D 06/06/18 04:42
[2018-06-06] MEDS ORDERED: Midazolam 2 MG/2 ML VIAL ONE ×2 (17:06→17:26)
[2018-06-06] MEDS ORDERED: ePHEDrine 50 mg/ml Inj ONE (17:12)
[2018-06-06] MEDS ORDERED: Lidocaine 2% MPF (5 ml) Inj ONE (17:13)
[2018-06-06] MEDS ORDERED: Iodixanol 320 MG/ML 200 ML BOTTLE IV ONE ×2 (17:14→17:49)
--- NOTE | 2018-06-06 18:29 | PCM.OP ---
Operative Report - Operative Report Date of Surgery/Procedure: 06/06/18 Time of Surgery/Procedure: 17:32 Surgeon: Dr.Jeffery Guzman Warp Tester: Shady Ibanez Anesthesia/Sedation: MAC by anesthesia Pre-Operative Diagnosis: symptomatic right internal carotid artery stenosis Post-Operative Diagnosis: Right ICA origin stenosis estimated 95% using NASCET criteria Indication for Surgery: repeated loss of vision CTA demonstrating severe stenosis of the right ICA Operative Findings: Right ICA stenosis 95% Procedure/Operation Description: Diagnostic cerebral and cervical angiography, balloon angioplasty and right carotid stent placement. Access right groin with micro-puncture technique exchange with a 5Fr sheath. Right carotid angiogram performed confirming stenosis criteria. Sheath system exchanged for 9Fr sheath and Moma device. Moma device advanced for embolic protection followed by angioplasty, and 6X30 carotid stent placement with post stent angioplasty. Groin closed with 8Fr angioseal. Estimated Blood Loss: 150ml Blood Replaced: none Sponge/Instrument Count: All devices and catheters removed Drains: none; right groin closed with 8Fr angioseal Complications: None, neuro assessment normal REEVES 5/5 b/l upper and lower; speech clear; stable throughout Specimen: None Discharge & Condition: Stable
[2018-06-06] MEDS: niCARdipine IV 25 MG in Sodium Chloride 0.9% 240 ML IV SCH ×2 (19:50→21:06)
--- NOTE | 2018-06-06 23:51 | CP.PCM.PN ---
Subjective - Date & Time of Evaluation Date of Evaluation: 06/06/18 Time of Evaluation: 12:05 - Subjective Subjective: Patient seen and examined at bedside. No acute events overnight. For DALI today CCU Objective - Vital Signs / Intake & Output Vital Signs (Last 4 hours): Vital Signs Temp Pulse Resp BP Pulse Ox 06/06/18 13:00 68 19 124/58 L 98 06/06/18 12:00 98.7 F 72 20 118/72 98 06/06/18 11:00 73 19 128/77 96 06/06/18 10:00 80 18 133/77 95 Intake and Output (Last 8hrs): Intake & Output 06/05/18 06/06/18 06/06/18 22:59 06:59 14:59 Intake Total 360 500 Output Total 750 800 Balance -390 -300 Intake: Intake, IV Amount 0 0 LW 0 Left Wrist 0 Right Antecubital 0 0 Oral 360 500 Output: Urine 750 800 Urine, Voided 750 800 Emesis 0 Oral Regurgitation 0 Other 0 Other: # Voids Urine, Voided 2 # Bowel Movements 0 - Physical Exam Head: Positive for: Normocephalic Pupils: Positive for: PERRL Extroacular Muscles: Positive for: EOMI Mouth: Positive for: Moist Mucous Membranes Cardiovascular: Positive for: Regular Rate and Rhythm, Normal S1, S2 Neurological: Positive for: GCS=15, CN II-XII Intact Skin: Positive for: Warm, Dry Psychiatric: Positive for: Alert, Oriented x 3 - Medications Active Medications: Active Medications Generic Name Dose Route Start Last Admin Trade Name Freq PRN Reason Stop Dose Admin Aspirin 81 mg 05/31/18 10:00 06/06/18 09:19 Aspirin Chewable PO 81 mg DAILY RAJWINDER Administration Dextrose 0 ml 05/30/18 22:41 Dextrose 50% Inj IV STAT PRN Hypoglycemia Protocol Protocol Dextrose 0 gm 05/30/18 22:41 Glutose 15 PO ONCE PRN Hypoglycemia Protocol Protocol Glucagon 0 mg 05/30/18 22:41 Glucagen Diagnostic Kit IM STAT PRN Hypoglycemia Protocol Protocol Insulin Aspart 0 unit 05/31/18 07:30 06/06/18 07:58 Novolog SC Not Given ACHS RAJWINDER Protocol Pantoprazole Sodium 40 mg 06/02/18 10:00 06/06/18 09:19 Protonix Inj IVP 40 mg DAILY RAJWINDER Administration Rosuvastatin Calcium 40 mg 06/02/18 22:00 06/05/18 22:12 Crestor PO 40 mg HS RAJWINDER Administration Ticagrelor 90 mg 06/02/18 20:00 06/06/18 09:00 Brilinta PO 90 mg Q12H RAJWINDER Administration - Patient Studies Lab Studies: Lab Studies 06/06/18 06/06/18 06/06/18 Range/Units 04:42 04:42 04:42 WBC 7.2 (4.8-10.8) K/uL RBC 4.49 (4.40-5.90) Mil/uL Hgb 13.9 (12.0-18.0) g/dL Hct 41.2 (35.0-51.0) % MCV 91.7 (80.0-94.0) fL MCH 30.9 (27.0-31.0) pg MCHC 33.7 (33.0-37.0) g/dL RDW 13.5 (11.5-14.5) % Plt Count 244 (130-400) K/uL MPV 7.6 (7.2-11.7) fL Neut % (Auto) 63.3 (50.0-75.0) % Lymph % (Auto) 26.4 (20.0-40.0) % Graham % (Auto) 8.0 (0.0-10.0) % Eos % (Auto) 1.7 (0.0-4.0) % Baso % (Auto) 0.6 (0.0-2.0) % Neut # (Auto) 4.5 (1.8-7.0) K/uL Lymph # (Auto) 1.9 (1.0-4.3) K/uL Graham # (Auto) 0.6 (0.0-0.8) K/uL Eos # (Auto) 0.1 (0.0-0.7) K/uL Baso # (Auto) 0.0 (0.0-0.2) K/uL PT 11.2 (9.7-12.2) SECONDS INR 1.0 APTT 34.0 D (21-34) SECONDS Sodium 140 (132-148) mmol/L Potassium 4.0 (3.6-5.2) mmol/L Chloride 105 (98-107) mmol/L Carbon Dioxide 25 (22-30) mmol/L Anion Gap 14 (10-20) BUN 12 (9-20) mg/dL Creatinine 0.8 (0.8-1.5) mg/dL Est GFR ( Amer) > 60 Est GFR (Non-Af Amer) > 60 Random Glucose 99 (75-110) mg/dL Calcium 9.2 (8.6-10.4) mg/dl Phosphorus 4.2 (2.5-4.5) mg/dL Magnesium 1.9 (1.6-2.3) mg/dL Total Bilirubin 0.6 (0.2-1.3) mg/dL AST 87 H D (17-59) U/L ALT 194 H D (21-72) U/L Alkaline Phosphatase 74 (38-126) U/L Total Protein 6.2 L (6.3-8.3) g/dL Albumin 3.8 (3.5-5.0) g/dL Globulin 2.4 (2.2-3.9) gm/dL Albumin/Globulin Ratio 1.6 (1.0-2.1) Blood Type Antibody Screen 06/06/18 Range/Units 04:00 WBC (4.8-10.8) K/uL RBC (4.40-5.90) Mil/uL Hgb (12.0-18.0) g/dL Hct (35.0-51.0) % MCV (80.0-94.0) fL MCH (27.0-31.0) pg MCHC (33.0-37.0) g/dL RDW (11.5-14.5) % Plt Count (130-400) K/uL MPV (7.2-11.7) fL Neut % (Auto) (50.0-75.0) % Lymph % (Auto) (20.0-40.0) % Graham % (Auto) (0.0-10.0) % Eos % (Auto) (0.0-4.0) % Baso % (Auto) (0.0-2.0) % Neut # (Auto) (1.8-7.0) K/uL Lymph # (Auto) (1.0-4.3) K/uL Graham # (Auto) (0.0-0.8) K/uL Eos # (Auto) (0.0-0.7) K/uL Baso # (Auto) (0.0-0.2) K/uL PT (9.7-12.2) SECONDS INR APTT (21-34) SECONDS Sodium (132-148) mmol/L Potassium (3.6-5.2) mmol/L Chloride (98-107) mmol/L Carbon Dioxide (22-30) mmol/L Anion Gap (10-20) BUN (9-20) mg/dL Creatinine (0.8-1.5) mg/dL Est GFR ( Amer) Est GFR (Non-Af Amer) Random Glucose (75-110) mg/dL Calcium (8.6-10.4) mg/dl Phosphorus (2.5-4.5) mg/dL Magnesium (1.6-2.3) mg/dL Total Bilirubin (0.2-1.3) mg/dL AST (17-59) U/L ALT (21-72) U/L Alkaline Phosphatase (38-126) U/L Total Protein (6.3-8.3) g/dL Albumin (3.5-5.0) g/dL Globulin (2.2-3.9) gm/dL Albumin/Globulin Ratio (1.0-2.1) Blood Type B POSITIVE Antibody Screen Negative Laboratory Results - last 24 hr 06/06/18 06/06/18 06/06/18 04:00 04:42 04:42 WBC 7.2 RBC 4.49 Hgb 13.9 Hct 41.2 MCV 91.7 MCH 30.9 MCHC 33.7 RDW 13.5 Plt Count 244 MPV 7.6 Neut % (Auto) 63.3 Lymph % (Auto) 26.4 Graham % (Auto) 8.0 Eos % (Auto) 1.7 Baso % (Auto) 0.6 Neut # (Auto) 4.5 Lymph # (Auto) 1.9 Graham # (Auto) 0.6 Eos # (Auto) 0.1 Baso # (Auto) 0.0 PT 11.2 INR 1.0 APTT 34.0 D Sodium Potassium Chloride Carbon Dioxide Anion Gap BUN Creatinine Est GFR ( Amer) Est GFR (Non-Af Amer) Random Glucose Calcium Phosphorus Magnesium Total Bilirubin AST ALT Alkaline Phosphatase Total Protein Albumin Globulin Albumin/Globulin Ratio Blood Type B POSITIVE Antibody Screen Negative 06/06/18 04:42 WBC RBC Hgb Hct MCV MCH MCHC RDW Plt Count MPV Neut % (Auto) Lymph % (Auto) Graham % (Auto) Eos % (Auto) Baso % (Auto) Neut # (Auto) Lymph # (Auto) Graham # (Auto) Eos # (Auto) Baso # (Auto) PT INR APTT Sodium 140 Potassium 4.0 Chloride 105 Carbon Dioxide 25 Anion Gap 14 BUN 12 Creatinine 0.8 Est GFR ( Amer) > 60 Est GFR (Non-Af Amer) > 60 Random Glucose 99 Calcium 9.2 Phosphorus 4.2 Magnesium 1.9 Total Bilirubin 0.6 AST 87 H D ALT 194 H D Alkaline Phosphatase 74 Total Protein 6.2 L Albumin 3.8 Globulin 2.4 Albumin/Globulin Ratio 1.6 Blood Type Antibody Screen Fingerstick Blood Sugar Results: 102 Review of Systems - Review of Systems All systems: reviewed and no additional remarkable complaints except Critical Care Progress Note - Nutrition Nutrition: Nutrition Category Date Time Status NPO Diet [DIET] Diets 06/06/18 Lunch Active Assessment/Plan - Assessment and Plan (Free Text) Assessment: 68 year old male with PMHx HTN found to have 90% stenosis R ICA, taken for cardiac cath and found to have >95% stenosis proximal LAD. S/p PCI at [place]. Patient to go for Carotid Stenting with interventional Neuro. ICU monitoring. Plan Cardio CAD - Critical >95% stenosis of proximal LAD -S/p PCI of LAD with Dr. Moses at [facility] -Medical management --Heparin ggt --ASA 81 daily --Brillinta 90 mg BID --Crestor 40 mg PO HS --Half NS @ 70 cc/hr Neuro Cartoid Stenosis -90% stenosis R ICA on MRI on initial CT angio -Neuro interventionalist on consult, Objective - Vital Signs/Intake and Output Vital Signs (last 24 hours): Temp Pulse Resp BP Pulse Ox 97.8 F 67 15 100/54 L 92 L 06/06/18 20:00 06/06/18 23:02 06/06/18 23:02 06/06/18 23:02 06/06/18 23:02 Intake and Output: 06/06/18 06/07/18 18:59 06:59 Intake Total 100 Output Total 750 0 Balance -750 100 - Medications Medications: Current Medications Aspirin (Aspirin Chewable) 81 mg PO DAILY RAJWINDER Last Admin: 06/06/18 09:19 Dose: 81 mg Dextrose (Dextrose 50% Inj) 0 ml IV STAT PRN; Protocol PRN Reason: Hypoglycemia Protocol Dextrose (Glutose 15) 0 gm PO ONCE PRN; Protocol PRN Reason: Hypoglycemia Protocol Glucagon (Glucagen Diagnostic Kit) 0 mg IM STAT PRN; Protocol PRN Reason: Hypoglycemia Protocol Nicardipine HCl 25 mg/ Sodium (Chloride) 250 mls @ 50 mls/hr IV .Q5H RAJWINDER; Protocol Last Admin: 06/06/18 21:06 Dose: Not Given Insulin Aspart (Novolog) 0 unit SC ACHS RAJWINDER; Protocol Last Admin: 06/06/18 22:20 Dose: Not Given Pantoprazole Sodium (Protonix Inj) 40 mg IVP DAILY RAJWINDER Last Admin: 06/06/18 09:19 Dose: 40 mg Rosuvastatin Calcium (Crestor) 40 mg PO HS RAJWINDER Last Admin: 06/06/18 21:05 Dose: 40 mg Ticagrelor (Brilinta) 90 mg PO Q12H RAJWINDER Last Admin: 06/06/18 21:05 Dose: 90 mg - Labs Labs: 06/06/18 04:42 06/06/18 04:42 PT 11.2 SECONDS (9.7-12.2) 06/06/18 04:42 INR 1.0 06/06/18 04:42 APTT 34.0 SECONDS (21-34) D 06/06/18 04:42
[2018-06-07] MEDS: niCARdipine IV 25 MG in Sodium Chloride 0.9% 240 ML IV SCH ×3 (03:15→13:55)
[2018-06-07 06:38] LABS: HEMOGLOBIN 14.4 g/dL (12.0-18.0); MEAN CELL VOLUME 92.7 fL (80.0-94.0); MEAN CORPUSCULAR HEMOGLOBIN 30.2 pg (27.0-31.0); MEAN CORPUSCULAR HGB CONC 32.6 g/dL (33.0-37.0); MEAN PLATELET VOLUME 8.5 fL (7.2-11.7); RBC 4.76 Mil/uL (4.40-5.90); RED CELL DISTRIBUTION WIDTH 13.6 % (11.5-14.5); WHITE BLOOD COUNT 7.5 K/uL (4.8-10.8)
[2018-06-07 06:49] LABS: ALB/GLOB RATIO 1.3 (1.0-2.1); ALBUMIN 3.8 g/dL (3.5-5.0); ALT/SGPT 218 U/L (21-72); AST/SGOT 114 U/L (17-59); BLOOD UREA NITROGEN 14 mg/dL (9-20); CALCIUM 9.4 mg/dl (8.6-10.4); GFR NON-AFRICAN AMERICAN > 60
[2018-06-07] MEDS: (Novolog) Insulin Aspart, Recombinant 100 u/ml 10 ml vial SC SCH ×2 (07:36→11:38)
--- NOTE | 2018-06-07 09:28 | CP.PCM.PN ---
<Neli Mullins - Last Filed: 06/07/18 16:47> Subjective - Date & Time of Evaluation Date of Evaluation: 06/07/18 Time of Evaluation: 09:28 - Subjective Subjective: Progress note for Dr. Moses Patient was seen and examined at bedside in no acute distress. Patient reports feeling well today and has no complaints. Denies chest pain, palpitations, shortness of breath, cough, nausea, vomiting, fevers, abdominal pain, leg pain, and leg swelling. No acute events overnight. Objective - Vital Signs/Intake and Output Vital Signs (last 24 hours): Temp Pulse Resp BP Pulse Ox 98.1 F 75 13 103/60 92 L 06/07/18 08:00 06/07/18 08:59 06/07/18 08:59 06/07/18 08:59 06/07/18 08:59 Intake and Output: 06/07/18 06/07/18 06:59 18:59 Intake Total 100 50 Output Total 800 Balance -700 50 - Medications Medications: Current Medications Aspirin (Aspirin Chewable) 81 mg PO DAILY RAJWINDER Last Admin: 06/07/18 09:23 Dose: 81 mg Dextrose (Dextrose 50% Inj) 0 ml IV STAT PRN; Protocol PRN Reason: Hypoglycemia Protocol Dextrose (Glutose 15) 0 gm PO ONCE PRN; Protocol PRN Reason: Hypoglycemia Protocol Glucagon (Glucagen Diagnostic Kit) 0 mg IM STAT PRN; Protocol PRN Reason: Hypoglycemia Protocol Nicardipine HCl 25 mg/ Sodium (Chloride) 250 mls @ 50 mls/hr IV .Q5H RAJWINDER; Protocol Last Admin: 06/07/18 07:06 Dose: Not Given Insulin Aspart (Novolog) 0 unit SC ACHS RAJWINDER; Protocol Last Admin: 06/07/18 07:36 Dose: Not Given Pantoprazole Sodium (Protonix Inj) 40 mg IVP DAILY RAJWINDER Last Admin: 06/07/18 09:23 Dose: 40 mg Rosuvastatin Calcium (Crestor) 40 mg PO HS RAJWINDER Last Admin: 06/06/18 21:05 Dose: 40 mg Ticagrelor (Brilinta) 90 mg PO Q12H RAJWINDER Last Admin: 06/07/18 07:44 Dose: 90 mg - Labs Labs: 06/07/18 05:41 06/07/18 05:41 PT 11.2 SECONDS (9.7-12.2) 04/30/19 04:42 INR 1.0 06/06/18 04:42 APTT 34.0 SECONDS (21-34) D 06/06/18 04:42 - Constitutional Appears: No Acute Distress - Head Exam Head Exam: ATRAUMATIC - Eye Exam Eye Exam: EOMI - ENT Exam ENT Exam: Mucous Membranes Moist - Respiratory Exam Respiratory Exam: Clear to Ausculation Bilateral, NORMAL BREATHING PATTERN. absent: Rhonchi, Wheezes, Respiratory Distress - Cardiovascular Exam Cardiovascular Exam: REGULAR RHYTHM, +S1, +S2 - GI/Abdominal Exam GI & Abdominal Exam: Soft, Normal Bowel Sounds. absent: Distended, Firm, Tenderness - Exam Additional comments: right groin, s/p cath- slight ecchymosis noted, dressing clean/dry/intact; nontender - Extremities Exam Extremities Exam: Normal Inspection. absent: Pedal Edema, Tenderness - Neurological Exam Neurological Exam: Alert, Awake, Oriented x3 - Psychiatric Exam Psychiatric exam: Normal Affect, Normal Mood - Skin Skin Exam: Dry, Normal Color, Warm Assessment and Plan - Assessment and Plan (Free Text) Plan: 68 year old male with PMHx HTN found to have 90% stenosis R ICA, taken for cardiac cath and found to have >95% stenosis proximal LAD. S/p PCI at [place]. S/p Carotid Stenting with interventional Neuro. CAD - Critical >95% stenosis of proximal LAD - s/p PCI of LAD with Dr. Moses at [facility] - Continue Medical management --ASA 81 daily --Brillinta 90 mg BID --Crestor 40 mg PO HS Carotid Stenosis - s/p carotid stent on 06/06/18 - 90% stenosis R ICA on MRI on initial CT angio *Upon discharge per primary team, patient must follow up with Dr. Moses within one week of discharge, and must continue taking the follow medications: ASA 81 daily, Brillinta 90 mg BID, Crestor 40 mg PO HS. Case discussed with Dr. Josué Siddiqui, PGY2 <Dell Moses - Last Filed: 06/07/18 23:32> Objective - Vital Signs/Intake and Output Vital Signs (last 24 hours): Temp Pulse Resp BP Pulse Ox 97.9 F 90 13 117/72 98 06/07/18 12:00 06/07/18 14:59 06/07/18 14:59 06/07/18 14:59 06/07/18 14:59 Intake and Output: 06/07/18 06/08/18 18:59 06:59 Intake Total 400 Output Total 350 Balance 50 - Labs Labs: 06/07/18 05:41 06/07/18 05:41 PT 11.2 SECONDS (9.7-12.2) 06/06/18 04:42 INR 1.0 06/06/18 04:42 APTT 34.0 SECONDS (21-34) D 06/06/18 04:42 Assessment and Plan - Assessment and Plan (Free Text) Plan: Patient seen and evaluated pesronally by me. Plan of care d/w the director medical surgical and as documented
[2018-06-07 10:01] LABS: EOS # 0.2 K/uL (0.0-0.7); LYMPH # 2.6 K/uL (1.0-4.3); MONO # 0.2 K/uL (0.0-0.8); NEUT # 4.7 K/uL (1.8-7.0)
--- NOTE | 2018-06-07 11:37 | PCM.OP ---
Operative Report - Operative Report Date of Surgery/Procedure: 06/06/18 Time of Surgery/Procedure: 16:00 Surgeon: Matthias Guzman MD Anesthesia/Sedation: MAC Pre-Operative Diagnosis: Right ICA stenosis Post-Operative Diagnosis: high grade right ICA stenosis Indication for Surgery: high grade stenosis Operative Findings: PRE-OPERATIVE DIAGNOSIS: SEVERE RIGHT INTERNAL CAROTID ARTERY STENOSIS POST OPERATIVE DIAGNOSIS: SAME PROCEDURE: CEREBRAL ANGIOGRAM AND CAROTID ARTERY STENTING RIGHT INTERNAL CAROTID ARTERY WITH REVERSE FLOW EMBOLIC PROTECTION DATE OF SERVICE: 06/06/2018 SURGEON: Dr. Matthias Guzman CONSENT: Informed consent was obtained for the procedure from the patient after discussing the nature of the proposed procedure the possible risks and benefits. Specific risks mentioned the patient include risk of ischemic stroke vascular injury. After I answered all questions written informed consent was obtained. ANESTHESIA: MAC INTRODUCTION: After the patient was placed under anesthesia, both groins were prepped and draped in the usual sterile fashion. A timeout procedure was documented, the patient's name date of and medical record number as well as the procedures to be performed was confirmed by the entire team, after everyone in the room agreed, the procedure continued. Using sterile Seldinger technique the right common femoral artery was punctured using a micro puncture needle. Over a 0.18 mm wire a 5 [place] sheath was introduced into the artery and then hooked up to a continuous heparinized flush system. Via the sheath a 5 [place] Lakhani Catheter was introduced over a 0.35 Terumo glide wire, into the double aorta the catheter was than double flushed and subsequently hooked up to a separate continuous heparinized flush system. The following vessels were than sequentially selected. Digital angiographic acquisitions were than obtained: VESSELS SELECTED: The right common carotid artery was selected cervical and intracranial views were obtained. The right vertebral artery was selected and and intracranial views were obtained. Left common carotid artery was selected cervical views were obtained. Left internal carotid artery was selected intracranial views were obtained. The left subclavian artery was selected cervical views were obtained. The left vertebral artery was selected intracranial views were obtained. DIAGNOSTIC IMAGING FINDINGS: injection of the right common carotid artery with cervical views demonstrates antegrade flow with filling of the external carotid artery and internal carotid artery in the neck there severe stenosis of the origin of the internal carotid artery estimated at 90% with narrowing of the distal internal carotid artery beyond the stenosis to a string sign. There slow flow within the internal carotid artery. Injection of the right common carotid artery with intracranial views demonstrates that there is a higher flow within the external carotid artery and that there slow filling of the Trupti and cavernous segment of the internal carotid artery was washout at the level of the posterior communicating artery. Injection of the left common carotid artery with cervical views demonstrates, there is mild atherosclerotic ulceration at the internal carotid artery origin without significant mimic stenosis the delete images demonstrates some retain contrast in this ulcer. The degree of stenosis using NASCET criteria is approximately 10%. Injection of the left internal carotid artery with intracranial views demonstrates filling of the left middle and anterior cerebral artery and cross flow to the DMITRI on the right there is a however minimal filling of the right middle cerebral artery on the right no arterial aneurysm vascular malformations are noted. There is an offending them of the left posterior communicating artery identified. Injection of left subclavian demonstrates normal appearance the left vertebral artery origin. Injection of left vertebral artery with cervical views demonstrates normal appearance the vertebral artery and his branches within the neck. Injection of left vertebral artery with intracranial views demonstrates good filling of the left vertebral and basilar there is a large right posterior communicating artery that fills retrograde the right middle cerebral artery territory. Intervention: At this point after discussion with the vascular surgeon decision was made to intervene. The patient was administered 5000 units of intravenous heparin. Follow-up activated coagulation times were obtained at 30-minute intervals. Under fluoroscopic and road mapping guidance the diagnostic catheter was positioned in the distal right external carotid artery and then exchanged over a Ruiz wire for a nine [place] arterial sheath in the right common femoral artery and then through the sheath a eight [place] MOMA device was advanced into the external carotid artery with the balloon was positioned at the level of the facial lingual trunk. The balloon was then inflated in the external carotid artery obtaining a good positioning. Wire and dilator were removed from MOMA device. Under road mapping and fluoroscopic imaging, a 6 x 20 balloon was advanced over a Synchro two wire into the common carotid artery. The proximal MOMA balloon was now inflated in the common carotid artery getting flow arrest. Under fluoroscopic and road mapping conditions the stenosis was traversed in the balloon was positioned across the stenosis and inflated to 8 liudmila with good opening of the balloon. The balloon was then deflated and removed leaving the wire position. Gentle hand injection demonstrates that there is a been good reopening of the stenosis the contrast and materials within aspirated from the common carotid and internal carotid artery using the penumbra aspiration system pump. At this .6 x 30 precise stent was advanced into the internal carotid artery in position across the stenosis and successfully deployed. This point aspiration of the internal carotid artery contents was performed using penumbra aspiration pump. Gentle hand injection demonstrates that there is good reopening of the vessel this was also removed. External carotid artery balloon was deflated, and 30 seconds of aspiration was performed prior to deflation of the common carotid artery balloon entire system was removed. Diagnostic catheter was re-prepared and advanced back into the abdominal aorta and flushed and follow-up angiography of the right common carotid artery and intracranial circulation was performed. Injection of the right common carotid artery post stent placement demonstrates excellent antegrade flow markedly improved caliber to the right middle cerebral artery with good filling of the Trupti in camera segments. Repeat injection of the right common carotid artery with intracranial views now demonstrates good filling of the right middle cerebral artery and some filling of the right anterior cerebral artery as well. There is no evidence for embolic debris or conclusions. At this point the diagnostic catheter was removed. The patient was examined was the baseline neurological condition. The nine [place] sheath was removed over wire and then subsequently an eight [place] angio seal was used to create hemostasis. IMPRESSION: SUCCESSFUL STENTING OF THE SEVERE 90% NASCET STENOSIS USING REVERSE FLOW AND THE MOMA DEVICE. THE PATIENT TOLERATED THE PROCEDURE WELL. Sincerely, Matthias Guzman MD. [facility] Procedure/Operation Description: see report Estimated Blood Loss: 150ml Complications: none Discharge & Condition: stable
--- NOTE | 2018-06-07 13:05 | CP.PCM.PN ---
Subjective - Date & Time of Evaluation Date of Evaluation: 06/07/18 Time of Evaluation: 11:50 - Subjective Subjective: [facility] Dr.Jeffrey Thomas Thakurmamarshall MSNA,AGNP-BC, DIRECT MAIL COORDINATOR is a 68 year old male who was transferred to [facility] from [facility] for symptomatic right ICA severe stenosis. Pt had an EKG and ST elevation was noted. Status post cardiac cath pt was found to have 98% stenosis via LAD. Due to the severity of the stenosis pt was transferred to [facility] on 06/05/18 for PCI (since open heart capability available). The pt had no complications s/p PCI and was transferred back to [facility] later that day. On 06/06/18 pt had successful stenting of the right ICA. The pt has no c/o of headache, dizziness, weakness, gait disturbance, or visual changes. Objective - Vital Signs/Intake and Output Vital Signs (last 24 hours): Temp Pulse Resp BP Pulse Ox 98.1 F 96 H 13 115/67 97 06/07/18 08:00 06/07/18 10:59 06/07/18 10:59 06/07/18 10:59 06/07/18 10:59 Intake and Output: 06/07/18 06/07/18 06:59 18:59 Intake Total 100 100 Output Total 800 Balance -700 100 - Medications Medications: Current Medications Aspirin (Aspirin Chewable) 81 mg PO DAILY [facility]END[facility] TO [facility] Last Admin: 06/07/18 09:23 Dose: 81 mg Dextrose (Dextrose 50% Inj) 0 ml IV STAT PRN; Protocol PRN Reason: Hypoglycemia Protocol Dextrose (Glutose 15) 0 gm PO ONCE PRN; Protocol PRN Reason: Hypoglycemia Protocol Glucagon (Glucagen Diagnostic Kit) 0 mg IM STAT PRN; Protocol PRN Reason: Hypoglycemia Protocol Nicardipine HCl 25 mg/ Sodium (Chloride) 250 mls @ 50 mls/hr IV .Q5H [facility]; Protocol Last Admin: 06/07/18 07:06 Dose: Not Given Insulin Aspart (Novolog) 0 unit SC ACHS [facility]END[facility]; Protocol Last Admin: 06/07/18 11:38 Dose: Not Given Pantoprazole Sodium (Protonix Inj) 40 mg IVP DAILY [facility] Last Admin: 06/07/18 09:23 Dose: 40 mg Rosuvastatin Calcium (Crestor) 40 mg PO HS [facility] Last Admin: 06/06/18 21:05 Dose: 40 mg Ticagrelor (Brilinta) 90 mg PO Q12H [facility] Last Admin: 06/07/18 07:44 Dose: 90 mg - Labs Labs: 06/07/18 05:41 06/07/18 05:41 PT 11.2 SECONDS (9.7-12.2) 06/06/18 04:42 INR 1.0 06/06/18 04:42 APTT 34.0 SECONDS (21-34) D 06/06/18 04:42 - Constitutional Appears: Well - Head Exam Head Exam: NORMAL INSPECTION - Eye Exam Eye Exam: EOMI, Normal appearance, PERRL Pupil Exam: NORMAL ACCOMODATION - ENT Exam ENT Exam: Mucous Membranes Moist - Neck Exam Neck Exam: Full ROM - Respiratory Exam Respiratory Exam: Clear to Ausculation Bilateral - GI/Abdominal Exam GI & Abdominal Exam: Normal Bowel Sounds - Rectal Exam Rectal Exam: Deferred - Extremities Exam Extremities Exam: Full ROM - Neurological Exam Neurological Exam: Alert, Awake, CN II-XII Intact, Oriented x3 Neuro motor strength exam: Left Upper Extremity: 5, Right Upper Extremity: 5, Left Lower Extremity: 5, Right Lower Extremity: 5 - Psychiatric Exam Psychiatric exam: Normal Affect - Skin Skin Exam: Normal Color, Warm (right groin s/p access site with no bleeding, ecchimosis or edema noted) Assessment and Plan - Assessment and Plan (Free Text) Assessment: NEUROLOGICAL EXAM: General: awake, sitting up in the chair Speech: no dysarthria, speech fluent Cranial Nerves: PERRL, BTT bilaterally, EOMI, no facial asymmetry, tongue midline Motor: 5/5 left and right upper and lower extremities Sensory: intact bilaterally Coordination: [id number] no dysmetria Gait: normal is a 68 year old male status post cerebral angiogram, balloon angioplasty and successful stenting of the right ICA origin. Right groin access site with dressing dry and intact with no bleeding, ecchymosis, or edema noted. No neuro or neurovascular deficits noted. Plan: 1- stable from neuro interventional standpoint 2- agree with continuing Brilinta 90mg BID and ASA 81mg daily 3- please see in 2 weeks for f/u 4- Thank-you for allowing us to assist in the care of 45 min spent assessing, discussing the discharge plan and follow up plan for the patient
[2018-06-07 13:37] VITALS: TEMP 97.9
--- NOTE | 2018-06-07 14:59 | CP.PCM.PN ---
Subjective - Date & Time of Evaluation Date of Evaluation: 06/07/18 Time of Evaluation: 14:59 - Subjective Subjective: patient seen and examined at the bedside Objective - Vital Signs/Intake and Output Vital Signs (last 24 hours): Temp Pulse Resp BP Pulse Ox 97.9 F 99 H 20 115/72 83 L 06/07/18 12:00 06/07/18 12:59 06/07/18 12:59 06/07/18 12:59 06/07/18 12:59 Intake and Output: 06/07/18 06/07/18 06:59 18:59 Intake Total 100 400 Output Total 800 0 Balance -700 400 - Medications Medications: Current Medications Aspirin (Aspirin Chewable) 81 mg PO DAILY [facility] Last Admin: 06/07/18 09:23 Dose: 81 mg Bacitracin (Bacitracin) 1 ea TOP BID [facility] Dextrose (Dextrose 50% Inj) 0 ml IV STAT PRN; Protocol PRN Reason: Hypoglycemia Protocol Dextrose (Glutose 15) 0 gm PO ONCE PRN; Protocol PRN Reason: Hypoglycemia Protocol Glucagon (Glucagen Diagnostic Kit) 0 mg IM STAT PRN; Protocol PRN Reason: Hypoglycemia Protocol Nicardipine HCl 25 mg/ Sodium (Chloride) 250 mls @ 50 mls/hr IV .Q5H [facility]; Protocol Last Admin: 06/07/18 13:55 Dose: Not Given Insulin Aspart (Novolog) 0 unit SC ACHS [facility]; Protocol Last Admin: 06/07/18 11:38 Dose: Not Given Pantoprazole Sodium (Protonix Inj) 40 mg IVP DAILY [facility] Last Admin: 06/07/18 09:23 Dose: 40 mg Rosuvastatin Calcium (Crestor) 40 mg PO HS [facility] Last Admin: 06/06/18 21:05 Dose: 40 mg Ticagrelor (Brilinta) 90 mg PO Q12H [facility] Last Admin: 06/07/18 07:44 Dose: 90 mg - Labs Labs: 06/07/18 05:41 06/07/18 05:41 PT 11.2 SECONDS (9.7-12.2) 06/06/18 04:42 INR 1.0 06/06/18 04:42 APTT 34.0 SECONDS (21-34) D 06/06/18 04:42 Assessment and Plan - Assessment and Plan (Free Text) Assessment: FOLLOW UP WITH PMD OR DR VAIL IN HIS OFFICE -----CALL FOR APPOINTMENT FOLLOW UP WITH DR VILLALOBOS IN HIS OFFICE ----CALL FOR APPOITMENT FOLLOW UP WITH DR KELLY IN 2 WEEK -----CALL FOR APPOINTMENT CONTINUE HOME MEDICATION NEW PRESCRIPTION GIVEN ASPIRIN 81 MG PO DAILY BRILINTA 90MG Q12H PO CRESTOR 40 MG PO DAILY ACTIVITY TOLERATED CALL DR VAIL OR GO TO THE EMERGENCY ROOM IF SYMPTOM RETURN OR WORSENING
[2018-06-07 15:58] VITALS: BP 117/72; PULSE 90; RESP 13; O2SAT 98
[2018-06-07] MEDS ORDERED: Bacitracin 500 Units/gm Oint Foilpak UD TOP SCH (18:00)
== END 2018-06-07 15:30 | disposition home or self-care (01) | DRG 892 ==
LOC: C.6T 21:56 → C.9I 06-02 08:51
PROVIDERS: ADMIT Internal Medicine Critical Care Medicine; ATTEND Internal Medicine Critical Care Medicine
PROC: 4A023N7 Measurement of Cardiac Sampling and Pressure, Left Heart, Percutaneous Approach (ICD-10-PCS; principal; 2018-06-02)
PROC: B2111ZZ Fluoroscopy of Multiple Coronary Arteries using Low Osmolar Contrast (ICD-10-PCS; 2018-06-02)
PROC: 037K3DZ Dilation of Right Internal Carotid Artery with Intraluminal Device, Percutaneous Approach (ICD-10-PCS; 2018-06-06)
DX: I65.21 Occlusion and stenosis of right carotid artery (principal); I10 Essential (primary) hypertension; H54.62 Unqualified visual loss, left eye, normal vision right eye; I25.10 Atherosclerotic heart disease of native coronary artery without angina pectoris; Z79.82 Long term (current) use of aspirin; Z95.5 Presence of coronary angioplasty implant and graft; E78.5 Hyperlipidemia, unspecified